=== PATIENT | female | born 1940 | race Caucasian/White ===

== ENCOUNTER → 2016-08-18 | Outpatient (CLI) | payer MEDICARE, BC ==
[2016-08-18 08:41] LABS: ALT 34 U/L (9-52); AST 26 U/L (14-36); Cholesterol 211 mg/dL (<200); Creatine Kinase 709 U/L (30-135); HDL Cholesterol 52 mg/dL (40-60); Triglycerides 152 mg/dL (<150)
== END ==
LOC: LABWHC1 06:52
PROVIDERS: ATTEND Internal Medicine Interventional Cardiology
DX: E78.2 Mixed hyperlipidemia (principal)
CPT/HCPCS: 36415; 80061; 82550; 84450; 84460

== ENCOUNTER → 2016-09-21 | Outpatient (CLI) | payer MEDICARE, BC | END | disposition home or self-care (01) | LOC: LABWHC1 06:37 | PROVIDERS: ATTEND Internal Medicine Interventional Cardiology | DX: E78.2 Mixed hyperlipidemia (principal) | CPT/HCPCS: 36415; 82550 ==

== ENCOUNTER → 2016-09-28 | Outpatient (CLI) | payer MEDICARE, BC | END | disposition home or self-care (01) | LOC: LABWHC1 06:43 | PROVIDERS: ATTEND Family Medicine | DX: E03.9 Hypothyroidism, unspecified (principal); E78.2 Mixed hyperlipidemia | CPT/HCPCS: 36415; 80061; 82550; 84439; 84443; 84450; 84460 ==

== ENCOUNTER → 2017-01-10 | Outpatient (CLI) | payer MEDICARE, BC ==
[2017-01-10 08:06] LABS: ALT 38 U/L (9-52); AST 17 U/L (14-36); Cholesterol 209 mg/dL (<200); Creatine Kinase 60 U/L (30-135); HDL Cholesterol 56 mg/dL (40-60)
== END | disposition home or self-care (01) ==
LOC: LABWHC1 07:03
PROVIDERS: ATTEND Internal Medicine Interventional Cardiology
DX: E78.2 Mixed hyperlipidemia (principal)
CPT/HCPCS: 36415; 80061; 82550; 84450; 84460

== ENCOUNTER → 2017-07-25 | Outpatient (CLI) | payer MEDICARE, BC ==
[2017-07-25 08:33] LABS: Albumin 3.9 g/dL (3.5-5.0); Calcium 9.6 mg/dL (8.4-10.2); Potassium 4.2 mmol/L (3.5-5.1); Total Bilirubin 0.3 mg/dL (0.2-1.3); Total Protein 6.3 g/dL (6.3-8.2)
== END | disposition home or self-care (01) ==
LOC: LABWHC1 06:49
PROVIDERS: ATTEND Internal Medicine Interventional Cardiology
DX: E78.2 Mixed hyperlipidemia (principal)
CPT/HCPCS: 36415; 80053; 80061

== ENCOUNTER → 2017-09-16 | Outpatient (CLI) | payer MEDICARE, BC ==
--- NOTE | 2017-09-17 13:22 | CT ---
EXAMINATION TYPE: CT abdomen pelvis wo con DATE OF EXAM: 09/16/2017 COMPARISON: NONE HISTORY: Patient complains of right shoulder blade pain, RLQ pain, nausea, and vomiting. CT DLP: 826 mGycm Automated exposure control for dose reduction was used. TECHNIQUE: Helical acquisition of images was performed from the lung bases through the pelvis. FINDINGS: Given intravenous and oral contrast limits evaluation of both the hollow and solid viscera. LUNG BASES: Multifocal pleural parenchymal scarring are noted. Partial intrathoracic stomach is seen. LIVER/GB: Solitary hypoattenuated 4 mm hepatic lesion is present on series 3 image 53, too small to a ccurately characterize. There is cholelithiasis. No right upper quadrant fat stranding changes are se en. PANCREAS: No significant abnormality is seen. No ductal dilatation. SPLEEN: No significant abnormality is seen. ADRENALS: Adrenal glands are slightly nodular and thickened without focal measurable nodule. Findings suggest adrenal gland hyperplasia as the adrenal glands maintain their normal adreniform shape. KIDNEYS: Unenhanced kidneys are unremarkable in morphology without hydronephrosis or nephrolithiasis. FREE AIR: No free air is visualized ADENOPATHY: No greater than 1 cm short axis lymph nodes are seen within the abdomen or pelvis. REPRODUCTIVE ORGANS: No significant abnormality is seen URINARY BLADDER: No significant abnormality is seen. OSSEOUS STRUCTURES: Mild multilevel degenerative changes of the spine. BOWEL: Large descending duodenal diverticulum is incidentally seen. Numerous colonic diverticula are seen without pericolonic fat stranding. OTHER: Severe calcific atheromatous changes are seen of the abdominal aorta and its branches. IMPRESSION: 1. CHOLELITHIASIS WITHOUT CT EVIDENCE OF ACUTE CHOLECYSTITIS. GIVEN THE PATIENT'S RIGHT UPPER QUADRAN T PAIN AND VOMITING HIDA SCAN COULD BE PERFORMED TO EVALUATE FOR BILIARY DYSKINESIA OR CHRONIC CHOLEC YSTITIS. 2. LARGE DESCENDING DUODENAL DIVERTICULUM AND PARTIAL INTRATHORACIC STOMACH. 3. COLONIC DIVERTICULOSIS WITHOUT EVIDENCE OF ACUTE DIVERTICULITIS. 4. SUBCENTIMETER NONSPECIFIC HEPATIC LESION THAT IS TOO SMALL TO ACCURATELY CHARACTERIZE.
== END | disposition home or self-care (01) ==
LOC: RADCTMAIN 15:50
PROVIDERS: ATTEND Family Medicine
DX: K80.20 Calculus of gallbladder without cholecystitis without obstruction (principal); K57.50 Diverticulosis of both small and large intestine without perforation or abscess without bleeding; K76.89 Other specified diseases of liver
CPT/HCPCS: 74176

== ENCOUNTER 2017-10-18 10:57 | Day surgery (SDC) | payer MEDICARE, BC ==
[2017-10-14 09:19] VITALS: BMI 32.9
[~2017-10-18 10:57] MED LIST: DEXAMETHASONE SOD PHOSPHATE 10 MG/ML 1 ML VIAL IV ONE; LACTATED RINGERS 1,000 ML IV SCH; MIDAZOLAM 2 MG/2 ML VIAL IV PRN; ONDANSETRON 4 MG/2 ML VIAL IVP ONE; Pre Op ABX Message 1 EACH MISC MISCELLANE ONE; fentaNYL (PF) 50 MCG/ML 2 ML AMP IV PRN
[2017-10-18 11:31] VITALS: TEMP 97
[2017-10-18] MEDS ORDERED: LIDOCAINE 1% 20 ML VIAL (10MG/ML) FOR IV START INTRADERMA ONE (11:52)
[2017-10-18] MEDS ORDERED: HEPARIN SODIUM,PORCINE 5,000 UNIT/ML 1 ML VIAL SQ ONE (12:08)
[2017-10-18] MEDS ORDERED: NEOSTIGMINE 1 MG/ML 10 ML VIAL ONE (12:30)
[2017-10-18] MEDS ORDERED: PROPOFOL 10 MG/ML 20 ML VIAL IV ONE (12:30)
[2017-10-18] MEDS ORDERED: GLYCOPYRROLATE 0.2 MG/ML 2 ML VIAL ONE (12:30)
[2017-10-18] MEDS ORDERED: LIDOCAINE 1% INJ 10MG/ML (20 ML MDV) ONE (12:30)
[2017-10-18] MEDS ORDERED: SUCCINYLCHOLINE CHLORIDE 100 MG/5 ML SYR IV ONE (12:30)
[2017-10-18] MEDS ORDERED: fentaNYL (PF) 50 MCG/ML 2 ML AMP ONE (12:30)
[2017-10-18] MEDS ORDERED: ROCURONIUM BROMIDE 10 MG/ML 10 ML VIAL IV ONE (12:30)
[2017-10-18] MEDS ORDERED: MIDAZOLAM 2 MG/2 ML VIAL ONE (12:30)
[2017-10-18] MEDS ORDERED: SODIUM CHLORIDE 0.9% 50 ML with ceFAZolin 1,000 MG IV ONE ×2 (12:35)
[2017-10-18] MEDS ORDERED: LIDOCAINE 1% INJ 10MG/ML (20 ML MDV) SQ ONE ×2 (12:50)
--- NOTE | 2017-10-18 13:40 | P.OP ---
Date of Procedure: 10/18/17 Preoperative Diagnosis: Cholelithiasis chronic cholecystitis Postoperative Diagnosis: Cholelithiasis chronic cholecystitis Procedure(s) Performed: Laparoscopic cholecystectomy Anesthesia: DONAVON Surgeon: Mauro Rojas Estimated Blood Loss (ml): 20 Pathology: other (Gallbladder with stones) Condition: stable Disposition: same day Indications for Procedure: Symptomatic gallstones Operative Findings: Cholelithiasis chronic cholecystitis Description of Procedure: After induction of general endotracheal anesthesia the abdominal wall was prepped prepped and draped in the usual fashion. Local anesthetic Xylocaine 1% was infiltrated into the skin and subcutaneous tissue just below the umbilicus was small transverse incision was made and deepened through the subcutaneous tissue. The fascia was exposed was infiltrated with the Marcaine and a Veress needle then inserted under direct vision with a satisfactory saline drop test. The peritoneal cavity was then inflated with carbon dioxide to pressure approximately 15 mmHg. The needle was replaced with a 10 mm trocar and the laparoscope inserted. 25 mm trochars were placed in the right upper quadrant and another 5 mm trocar in the epigastrium under direct vision under local anesthesia. Visual exploration revealed no other abnormalities other than some moderate omental adhesions to the gallbladder. No liver masses were noted or cysts of significant. The gallbladder was retracted omental adhesions lysed away gently. The neck of the gallbladder were then carefully dissected and the cystic duct identified school he denies any junction with the gallbladder and common duct was well visualized. The cystic duct was then triply clipped and divided as was the cystic artery. The gallbladder then dissected from its bed and removed through the umbilical port site. Supernatant infrahepatic spaces were thoroughly irrigated. Hemostasis was good and the field was dry. All trochars were then removed under direct vision. CO2 was evacuated. Fascial incision at the umbilicus closed with interrupted 0 Vicryl sutures and the skin with 4-0 Monocryl subcuticular sutures and Steri-Strips dressings were applied. All counts were correct. After an adequate period of observation the patient was discharged home. Low- fat diet. May resume her home meds. Encouraged to ambulate 3-4 times a day starting today. No heavy lifting or straining for a week. Return appointment to the office in about 10-12 days. Tramadol 50 mg 1 every 6 hours when necessary for pain. Removed the dressings and 24 hours. Plan - Discharge Summary New Discharge Prescriptions: No Action amLODIPine [Norvasc] 5 mg PO BID Levothyroxine Sodium [Synthroid] 137 mcg PO DAILY Hydrochlorothiazide [Hydrodiuril] 25 mg PO DAILY Atenolol 25 mg PO HS Ezetimibe [Zetia] 10 mg PO HS Cholecalciferol [Vitamin D3] 1,000 unit PO HS Aspirin 162 mg PO DAILY [place]-3 Fatty Acids/Fish Oil [Fish Oil 1,000 mg Softgel] 1 each PO DAILY hydrALAZINE HCL [Apresoline] 75 mg PO TID cloNIDine HCL [Clonidine HCl] 0.1 mg PO DAILY [place]-3 Fatty Acids/Fish Oil [Fish Oil 1,000 mg Softgel] 1 cap PO DAILY Discharge Medication List Atenolol 25 mg PO HS 08/08/15 [History] Hydrochlorothiazide [Hydrodiuril] 25 mg PO DAILY 08/08/15 [History] Levothyroxine Sodium [Synthroid] 137 mcg PO DAILY 08/08/15 [History] amLODIPine [Norvasc] 5 mg PO BID 08/08/15 [History] Aspirin 162 mg PO DAILY 10/21/15 [History] Cholecalciferol [Vitamin D3] 1,000 unit PO HS 10/21/15 [History] Ezetimibe [Zetia] 10 mg PO HS 10/21/15 [History] [place]-3 Fatty Acids/Fish Oil [Fish Oil 1,000 mg Softgel] 1 each PO DAILY [History] cloNIDine HCL [Clonidine HCl] 0.1 mg PO DAILY 01/20/16 [History] hydrALAZINE HCL [Apresoline] 75 mg PO TID 01/20/16 [History] [place]-3 Fatty Acids/Fish Oil [Fish Oil 1,000 mg Softgel] 1 cap PO DAILY [History]
[2017-10-18 13:49] VITALS: RESP 16
[2017-10-18] MEDS ORDERED: LACTATED RINGERS 1,000 ML IV ONE (14:15)
[2017-10-18 16:19] VITALS: BP 117/69; PULSE 60
== END 2017-10-18 16:30 | disposition home or self-care (01) ==
LOC: OR 10:57
PROVIDERS: ATTEND Surgery
DX: K80.10 Calculus of gallbladder with chronic cholecystitis without obstruction (principal); K66.0 Peritoneal adhesions (postprocedural) (postinfection); I10 Essential (primary) hypertension; E78.00 Pure hypercholesterolemia, unspecified; E03.9 Hypothyroidism, unspecified; G47.33 Obstructive sleep apnea (adult) (pediatric); R01.1 Cardiac murmur, unspecified; Z85.828 Personal history of other malignant neoplasm of skin; Z86.73 Personal history of transient ischemic attack (TIA), and cerebral infarction without residual deficits; Z87.891 Personal history of nicotine dependence; K21.9 Gastro-esophageal reflux disease without esophagitis; Z79.82 Long term (current) use of aspirin; Z79.890 Hormone replacement therapy; Z79.899 Other long term (current) drug therapy; Z88.5 Allergy status to narcotic agent; Z88.8 Allergy status to other drugs, medicaments and biological substances
CPT/HCPCS: 88304; 47562; J2250; J1644; J1100; J2710; J2405; J2001; J3010; J0690; J0330; J2704

== ENCOUNTER → 2018-02-13 | Outpatient (CLI) | payer MEDICARE, BC ==
[2018-02-13 11:41] LABS: Cholesterol 179 mg/dL (<200); HDL Cholesterol 54 mg/dL (40-60); LDL Cholesterol,Calculated 105 mg/dL (0-99); Triglycerides 101 mg/dL (<150)
== END | disposition home or self-care (01) ==
LOC: LABWHC1 06:51
PROVIDERS: ATTEND Internal Medicine Interventional Cardiology
DX: E78.2 Mixed hyperlipidemia (principal)
CPT/HCPCS: 36415; 80061

== ENCOUNTER → 2018-02-13 | Outpatient (CLI) | payer MEDICARE, BC ==
[2018-02-13 08:55] LABS: HGB 12.9 gm/dL (11.4-16.0); MCHC 32.2 g/dL (31.0-37.0); MCV 93.2 fL (80.0-100.0); Mean Platelet Volume 6.9; Platelet Count 328 k/uL (150-450); RBC 4.29 m/uL (3.80-5.40); RDW 12.9 % (11.5-15.5); WBC 6.7 k/uL (3.8-10.6)
[2018-02-13 08:57] LABS: Appearance,Urine Clear (Clear); Bilirubin,Urine Negative (Negative); Blood,Urine Negative (Negative); Color,Urine Yellow; Glucose,Urine (UA) Negative (Negative); Ketones,Urine Negative (Negative); Leukocyte Esterase,Urine Negative (Negative); Nitrite,Urine Negative (Negative); PH, Urine 6.5 (5.0-8.0); Protein,Urine Trace (Negative); Specific Gravity,Urine 1.013 (1.001-1.035); Urobilinogen,Urine <2.0 mg/dL (<2.0)
[2018-02-13 09:01] LABS: Partial Thromboplastin Time 24.3 sec (22.0-30.0); Prothrombin Time 9.5 sec (9.0-12.0)
[2018-02-13 09:28] LABS: Albumin 3.8 g/dL (3.5-5.0); Calcium 9.6 mg/dL (8.4-10.2); Total Bilirubin 0.4 mg/dL (0.2-1.3); Total Protein 6.3 g/dL (6.3-8.2)
== END | disposition home or self-care (01) ==
LOC: LABPAT 06:49
PROVIDERS: ATTEND Orthopaedic Surgery
DX: Z01.818 Encounter for other preprocedural examination (principal); Z01.812 Encounter for preprocedural laboratory examination; Z79.01 Long term (current) use of anticoagulants
CPT/HCPCS: 36415; 80053; 81003; 85027; 85610; 85730; 87070; 93005

== ENCOUNTER 2018-03-13 07:06 | Inpatient (IN) | payer MEDICARE, BC ==
[2018-03-03 08:47] VITALS: BMI 32.9
[~2018-03-13 07:06] MED LIST changes: +ACETAMINOPHEN TAB 500 MG TAB PO ONE; +HYDROmorphone 0.5 MG/0.5 ML SYRINGE IVP PRN; -LACTATED RINGERS 1,000 ML IV SCH; +MELOXICAM 7.5 MG TAB PO ONE; -Pre Op ABX Message 1 EACH MISC MISCELLANE ONE; +ROPIVACAINE 246.25 MG, EPINEPHrine 0.5 MG, KETOROLAC 30 MG, cloNIDine HCL/PF 80 MCG, WA... MISCELLANE ONE; +TRANEXAMIC ACID 1,000 MG in SODIUM CHLORIDE 0.9% 50 ML IVPB ONE; +ceFAZolin IN SWFI 2 GM/20 ML SYRINGE IVP ONE; -fentaNYL (PF) 50 MCG/ML 2 ML AMP IV PRN
[2018-03-13] MEDS: LACTATED RINGERS 1,000 ML IV SCH (07:36)
[2018-03-13] MEDS ORDERED: fentaNYL (PF) 50 MCG/ML 2 ML AMP IVP ONE (07:44)
[2018-03-13] MEDS ORDERED: ROPIVACAINE 1,100 MG, SODIUM CHLORIDE 0.9% 500 ML 330 ML MISCELLANE PRN ×2 (08:21)
--- NOTE | 2018-03-13 08:24 | P.ONQ ---
Anesthesiology Proc Note - PNB - Peripheral Nerve Block Performed Left Adductor Canal Infusion Time Out Performed: Yes Indication: Acute Post-Operative Pain, Analgesia Sedation Type: Sedate with meaningful contact maintained Preparation: Sterile Prep Position: Supine Catheter Depth at Skin (cm): 6 Catheter: Indwelling Needle Types: Other (see comment) (raissa) Needle Size: 100mm (4") Needle Gauge: 18 Technique: Ultrasound Injectate: 0.5% Ropivacaine (see comment for volume) (20cc) Blood Aspirated: No Pain Paresthesia on Injection Noted: No Resistance on Injection: Normal Events: Uneventful and Well Tolerated
[2018-03-13] MEDS ORDERED: BISACODYL 10 MG SUPP RECTAL PRN (09:27)
[2018-03-13] MEDS ORDERED: HYDROmorphone 1 MG/ML 1 ML SYRINGE IVP PRN ×3 (09:27)
[2018-03-13] MEDS ORDERED: HYDROcodone/APAP 5-325MG 1 EACH TAB PO PRN ×2 (09:27)
[2018-03-13] MEDS ORDERED: DIAZEPAM 5 MG TAB PO PRN (09:27)
[2018-03-13] MEDS ORDERED: hydrOXYzine PAMOATE 25 MG CAP PO PRN (09:27)
[2018-03-13] MEDS ORDERED: MAGNESIUM HYDROXIDE 2,400 MG/10 ML CUP PO PRN (09:27)
[2018-03-13] MEDS ORDERED: NALOXONE 0.4 MG/ML 1 ML VIAL IV PRN (09:27)
[2018-03-13] MEDS ORDERED: ONDANSETRON 4 MG/2 ML VIAL IVP PRN (09:27)
[2018-03-13] MEDS ORDERED: NA PHOS,M-B/NA PHOS,DI-BA 133 ML ENEMA RECTAL PRN (09:27)
[2018-03-13] MEDS ORDERED: MIDAZOLAM 2 MG/2 ML VIAL ONE (09:31)
[2018-03-13] MEDS ORDERED: PROPOFOL 10 MG/ML 20 ML VIAL IV ONE (09:31)
[2018-03-13] MEDS ORDERED: ceFAZolin 3,000 MG in SODIUM CHLORIDE 0.9% IRRIGATIO 3,000 ML IRRIGATION ONE (09:31)
[2018-03-13] MEDS ORDERED: SODIUM CHLORIDE 0.9% 100 ML BAG ONE (09:31)
[2018-03-13] MEDS ORDERED: TRANEXAMIC ACID 1,000 MG/10 ML VIAL ONE (09:31)
--- NOTE | 2018-03-13 10:57 | P.OP ---
Date of Procedure: 03/13/18 Preoperative Diagnosis: Severe osteoarthritis left knee Postoperative Diagnosis: Severe osteoarthritis left knee Procedure(s) Performed: Left total knee arthroplasty Implants: [place] [employer] II CR Oxinium cruciate retaining femoral component size 4, left [place] left nonporous tibial baseplate size 4 [place] [employer] II, XLPE Deep Dished articular insert, size11 mm, Size 3- 4 left [place] [employer] BCS resurfacing oval patellar component, 29 mm All components were cemented using [place] R bone cement.. The articulation is Oxinium on polyethylene. Anesthesia: spinal Surgeon: Tony Canela Reserve Officer #1: Aziza Tate Estimated Blood Loss (ml): 50 Pathology: other (Bone and cartilage) Condition: stable Disposition: PACU Indications for Procedure: After failure of conservative treatment we discussed the surgical and nonsurgical treatment options at length. Patient wishes to proceed with a total knee arthroplasty. Complications specific to this procedure were discussed at length, including but not limited to infection, bleeding, stiffness , and nerve injury. Patient is aware of all these complications and informed consent was obtained Operative Findings: The operative findings are consistent with severe osteoarthritis of the left knee Description of Procedure: Patient was seen in the preoperative area consent was reviewed and operative site was marked with a skin marker. An adductor canal pain catheter was placed by anesthesia in the preoperative area. Patient was then brought to the operating room and given preoperative antibiotics intravenously. A spinal anesthetic was administered by the anesthesia department. A tourniquet was placed on the upper thigh and the lower extremity was prepped and draped in usual sterile fashion. A gram of transexamic acid was given. A universal timeout was then performed which confirmed the patient's name, surgical site, ALLERGIES, and consent. The lower extremity was then exsanguinated and tourniquet was inflated to 250 mmHg. A standard and anterior midline approach to the knee was performed. The skin and subcutaneous tissue was dissected down to the patellar tendon. A medial parapatellar arthrotomy was then performed. The knee was then extended, the patellar was everted, and the knee was again flexed. Anterior horns of both menisci were excised, and a release was performed to the posterior medial aspect of the knee. On gross visual inspection, there was complete loss of articular cartilage in the medial and patellofemoral joint spaces. There was also significant cartilage damage in the lateral compartment. There were multiple periarticular osteophytes which were then removed with a Ronguer. The femoral canal was then opened with the appropriate drill, and the intramedullary femoral cutting guide was then placed and set for 5 of valgus. The distal femoral cutting block was then pinned in place, and the distal femur was then cut. The cutting block was then removed and the cut was checked for flatness. Next, the sizing guide was then placed and set for 3 external rotation based off of the epicondylar axis and Whitesides line. After the femur was sized, the appropriate 4-in-1 cutting block was then pinned in place. The anterior condyles were cut without notching. The posterior and chamfer cuts were performed while protecting the collateral ligaments. The cutting block was then removed, and the femoral canal was plugged with autologous bone. Attention was then directed to the tibia. The remaining ACL was removed with a Ronguer, and the tibia was then gently subluxed forward with a large bent knee retractor. Any remaining menisci was excised. The posterior lateral corner was cauterized in order to cauterize the lateral geniculate artery. The extra medullary tibial cutting guide was then placed, set for the appropriate rotation , slope, and depth of resection. The proximal tibia cutting guide was then pinned in place. Proximal tibia was then cut and sized. Next trials were then placed with the appropriate-sized insert. The knee was able to fully extend and flex to 130 and was stable throughout all range of motion. The knee was then extended, patella everted. Patella was then measured, and then using an osteotomy guide, the patella was cut at the appropriate level. The patella was then measured and drilled and the patella trial was then placed. The knee was then taken through range of motion with the patella trial and the patella tracked normally. The knee was then extended patella trial was then removed and the patella was everted. Knee was then flexed and lug holes were drilled through the femoral trial and the femoral trial was then removed. The tibial was then exposed, and the tibial broach guide was then pinned in place after it was set for the appropriate rotation to allow for the most coverage without overhang. The tibia was then reamed and broached. The cut surfaces of bone were then irrigated with pulsatile lavage. The posterior structures were injected with the ropivacaine solution. The knee was also irrigated with Irrisept solution. The components were then opened, the cement was mixed, and the components were then cemented in place. The cement was allowed to harden with the knee in full extension. While the cement was hardening, the remaining soft tissues were then injected with a ropivacaine solution, which consisted of 246.25 mg of ropivacaine, 0.5 mg of epinephrine, 30 mg of Toradol, 80 g of clonidine, and 48.45 mL of sterile water, for a total of 100 mL of fluid injected. After the cemented hardened. The tourniquet was released, and hemostasis was obtained. A second gram of transexamic acid was given. The knee was again irrigated. The knee was again taken through range of motion and found to be stable throughout all range of motion of 0-130 , and the patella tracked normally. The fascia was then closed with #2 strata fix suture. The subcutaneous tissue was closed with 3-0 Vicryl and 3-0 strata fix. Dermabond glue was used for the skin and placed with the knee in flexion. The patient was placed in a sterile silver dressing. Patient was then transferred to recovery room in stable condition. The assistant professor of spanish SHIRLEY Wesley was required due the complexity surgery and the need for a skilled zoning assistant. She assisted in positioning, draping, retraction, and closure of the wound.
[2018-03-13] MEDS ORDERED: LACTATED RINGERS 1,000 ML IV ONE (11:09)
--- NOTE | 2018-03-13 12:21 | XR ---
EXAMINATION TYPE: XR knee limited LT DATE OF EXAM: 03/13/2018 COMPARISON: NONE HISTORY: 77-year-old female evaluation for postoperative abnormality and alignment TECHNIQUE: 2 views FINDINGS: Images show placement of left total knee arthroplasty. Both distal femoral and proximal tibial compon ents of the prosthesis appear well seated without periprosthetic fracture. Alignment grossly anatomic . Anterior soft tissue irregularity with soft tissue air as well as intra-articular air related to re cent operation. IMPRESSION: Uncomplicated postoperative appearance left total knee arthroplasty.
[2018-03-13] MEDS: SODIUM CHLORIDE 0.9% 1,000 ML IV SCH (15:13)
[2018-03-13] MEDS: hydrALAZINE HCL 25 MG TAB PO SCH ×2 (18:02→23:09)
[2018-03-13] MEDS: ceFAZolin IN SWFI 2 GM/20 ML SYRINGE IVP SCH ×2 (18:02→23:09)
[2018-03-13] MEDS ORDERED: traMADol 50 MG TAB PO PRN ×2 (18:22)
[2018-03-13] MEDS: ASPIRIN 325 MG TAB PO SCH (20:25)
[2018-03-13] MEDS: amLODIPine 5 MG TAB PO SCH (20:25)
[2018-03-13] MEDS ORDERED: SENNOSIDES-DOCUSATE SODIUM 1 EACH TAB PO SCH (21:00)
[2018-03-13] MEDS ORDERED: CHOLECALCIFEROL 1,000 UNIT TAB PO SCH (21:00)
[2018-03-13] MEDS ORDERED: ATENOLOL 25 MG TAB PO SCH (21:00)
[2018-03-13] MEDS ORDERED: EZETIMIBE 10 MG TAB PO SCH (21:00)
[2018-03-14] MEDS: SODIUM CHLORIDE 0.9% 1,000 ML IV SCH (06:10)
[2018-03-14] MEDS: LACTATED RINGERS 1,000 ML IV SCH (06:10)
[2018-03-14] MEDS ORDERED: LEVOTHYROXINE 137 MCG TAB PO SCH (06:30)
[2018-03-14 07:43] LABS: Basophils % (A) 0 %; Eosinophils % (A) 0 %; HCT 33.4 % (34.0-46.0); HGB 10.6 gm/dL (11.4-16.0); Lymphocytes # (A) 1.9 k/uL (1.0-4.8); Lymphocytes % (A) 16 %; MCHC 31.7 g/dL (31.0-37.0); MCV 91.5 fL (80.0-100.0); Mean Platelet Volume 6.6; Monocytes % (A) 8 %; Neutrophils % (A) 75 %; Platelet Count 295 k/uL (150-450); RBC 3.65 m/uL (3.80-5.40); RDW 13.1 % (11.5-15.5)
[2018-03-14 08:18] VITALS: BP 119/62; PULSE 58; RESP 18; TEMP 98.7
--- NOTE | 2018-03-14 08:54 | P.PN ---
Progress Note - Text Progress Note Date: 03/14/18 Vital Signs 03/14/18 07:30 Temperature 98.7 F Pulse Rate [ 58 L Pulse Oximetery ] Respiratory 18 Rate Blood Pressure 119/62 [Right Arm] O2 Sat by Pulse 95 Oximetry Date of service March 14 2018 Anesthesia pain rounds Patient evaluated at the bedside at 7:15 AM The patient is status post[ 1] adductor canal catheter placement. The catheter was placed for postoperative pain control, status post total left knee arthroplasty. Ropivacaine 0.2% is infusing at 8 mLs per hour. The patient has no complaints of left lower extremity numbness or weakness. Patient's VAS score is 3 -10. Assessment: Patient's adductor canal catheter is in place and working appropriately. Plan: continue infusion and adjust it as needed.
[2018-03-14] MEDS ORDERED: MELOXICAM 7.5 MG TAB PO SCH (09:00)
[2018-03-14] MEDS ORDERED: cloNIDine HCL 0.1 MG TAB PO SCH (09:00)
[2018-03-14] MEDS ORDERED: HYDROCHLOROTHIAZIDE 25 MG TAB PO SCH (09:00)
[2018-03-14] MEDS: hydrALAZINE HCL 25 MG TAB PO SCH (09:11)
[2018-03-14] MEDS: amLODIPine 5 MG TAB PO SCH (09:12)
[2018-03-14] MEDS: ASPIRIN 325 MG TAB PO SCH (09:21)
--- NOTE | 2018-03-14 10:24 | P.CONS ---
History of Present Illness - Reason for Consult Consult date: 03/14/18 Medical management Requesting physician: Tony Canela - Chief Complaint s/p left TKA - History of Present Illness 77-year-old female who underwent elective left total knee arthroplasty. Dr. Ba was consulted for medical management. The patient has a history of CVA in 2007, GERD, hyperlipidemia, hypertension, osteoarthritis. She is a former cigarette smoker. The patient was examined at the bedside with Dr. Ba. The patient is sitting up in the chair. Denies nausea or vomiting. Denies shortness of breath , cough, or congestion. Reports pain is tolerable at this time. Patient is anticipating working with physical therapy today. Vital signs have been stable. REVIEW OF SYSTEMS: GENERAL: Patient denies fever. Denies chills. EYES: Denies blurred vision. Denies vision changes. Denies eye pain. EARS, NOSE, MOUTH, & THROAT: Denies headache. Denies sore throat. Denies ear pain. RESPIRATORY: Denies cough. Denies shortness of breath. Denies sputum production. Denies hemoptysis. CARDIOVASCULAR: Denies chest pain or pressure. Denies palpitations. Denies arrhythmias. GASTROINTESTINAL: Denies abdominal pain. Denies diarrhea. Denies constipation. Denies nausea. Denies vomiting. Denies heartburn. Denies blood in the stool. GENITOURINARY: Denies urinary frequency. Denies burning. Denies dysuria. Denies cloudy urine. Denies blood in the urine. MUSCULOSKELETAL: Denies myalgias. Denies joint swelling. INTEGUMENTARY: Denies pruitis. Denies rash. PSYCHIATRIC: Denies suicidal or homicial ideations. ENDOCRINE: Denies weight change. Denies polydipsia. Denies polyuria. HEMATOLOGIC: Denies bleeding disorders. PHYSICAL EXAM: GENERAL: This is a 77-year-old female in no apparent distress at the time of examination. Pleasant and cooperative. HEENT: Head is atraumatic, normocephalic. Pupils are equal, round, and reactive to light. Sclerae anicteric. Conjunctivae are clear. Mucus membranes of the mouth are moist. Neck is supple. RESPIRATORY: Clear to auscultation. No wheezes, rales, or rhonchi. No use of accessory muscles. Patient maintaining oxygen saturation greater than 92%. No chest wall tenderness is noted on palpation or with deep breathing. CARDIOVASCULAR: Regular rate and rhythm. S1 and S2 noted. Systolic murmur auscultated. No JVD noted. No S3 or S4 noted. GASTROINTESTINAL: No distention noted. Abdomen soft and round. Normal active bowel sounds auscultated x 4 quadrants. No pain or tenderness noted upon palpation. INTEGUMENTARY: Dressing to left knee clean dry and intact. No cyanosis. No jaundice. No rashes noted. No cellulitis noted. EXTREMITIES: 2+ peripheral pulses. No evidence of peripheral edema. No calf tenderness noted. NEUROLOGIC: Cranial nerves II-XII intact. PSYCHIATRIC: Awake, alert, and oriented X 3. Appropriate affect. Intact judgement and insight. ASSESSMENT: Osteoarthritis, status post left total knee arthroplasty Hyperlipidemia Hypertension History of CVA in 2007 Remote history of nicotine dependence Obesity: BMI 32.9 PLAN: Continue postoperative care per orthopedics. Activity as tolerated. PT/OT. Pain control. Resume home medications as appropriate. Monitor vital signs and address as appropriate. Incentive spirometer 10 times hour while awake. DVT prophylaxis: Aspirin 325 mg twice a day. GI prophylaxis: Pepcid 20 mg daily. Thank you for this consultation. We will continue to follow with the patient during their hospitalization. The patient is stable for discharge from a medical standpoint when cleared for discharge by attending/admitting physician Nurse practitioner note has been reviewed by physician. Signing provider agrees with the documented findings, assessment, and plan of care. Past Medical History Past Medical History: Cancer, CVA/TIA, GERD/Reflux, Hyperlipidemia, Hypertension , Osteoarthritis (OA), Sleep Apnea/CPAP/BIPAP Additional Past Medical History / Comment(s): hx heart murmur, stroke 2007-no residual effects, hx. basal cell skin cancer, hx shingles History of Any Multi-Drug Resistant Organisms: None Reported Past Surgical History: Appendectomy, Cholecystectomy, Heart Catheterization, Joint Replacement, Tubal Ligation Additional Past Surgical History / Comment(s): right knee replaced, Mohs procedure-skin cancer, COLONOSCOPY Past Anesthesia/Blood Transfusion Reactions: No Reported Reaction Past Psychological History: No Psychological Hx Reported Smoking Status: Former smoker Past Alcohol Use History: Rare Additional Past Alcohol Use History / Comment(s): quit smoking 33 yrs. ago, smoked 20 years <1ppd Past Drug Use History: None Reported - Past Family History Mother Family Medical History: Hypertension Father Family Medical History: COPD, Coronary Artery Disease (CAD) Medications and Allergies Home Medications Medication Instructions Recorded Confirmed Type Atenolol 25 mg PO HS 08/08/15 03/13/18 History Hydrochlorothiazide [Hydrodiuril] 25 mg PO DAILY 08/08/15 03/13/18 History Levothyroxine Sodium [Synthroid] 137 mcg PO DAILY 08/08/15 03/13/18 History amLODIPine [Norvasc] 5 mg PO BID 08/08/15 03/13/18 History Cholecalciferol [Vitamin D3] 1,000 unit PO HS 10/21/15 03/13/18 History Ezetimibe [Zetia] 10 mg PO HS 10/21/15 03/13/18 History cloNIDine HCL [Clonidine HCl] 0.1 mg PO DAILY 01/20/16 03/13/18 History hydrALAZINE HCL [Apresoline] 75 mg PO TID 01/20/16 03/13/18 History Aspirin [Adult Low Dose Aspirin EC] 81 mg PO HS 03/03/18 03/13/18 History Lutein 20 mg PO DAILY 03/03/18 03/13/18 History Ranitidine HCl [Zantac] 300 mg PO HS 03/03/18 03/13/18 History Allergies Allergy/AdvReac Type Severity Reaction Status Date / Time codeine Allergy Hallucinati Verified 03/13/18 11:44 ons lisinopril Allergy Swelling Verified 03/13/18 11:44 scopolamine Allergy Hallucinati Verified 03/13/18 11:44 ons nitrofurantoin AdvReac "makes me Verified 03/13/18 11:44 [From Macrobid] antsy" Physical Exam Vitals: Vital Signs Temp Pulse Pulse Resp BP Pulse Ox 03/14/18 07:30 98.7 F 58 L 18 119/62 95 03/14/18 00:00 16 03/13/18 23:00 98.0 F 66 16 132/65 96 03/13/18 20:00 98.7 F 69 16 141/51 96 03/13/18 14:23 59 L 113/64 03/13/18 14:07 77 113/69 03/13/18 13:52 67 111/67 03/13/18 13:37 61 113/68 03/13/18 13:23 58 L 111/52 03/13/18 13:07 56 L 111/69 03/13/18 12:52 59 L 117/67 03/13/18 12:38 59 L 113/52 03/13/18 12:23 97.6 F 60 116/43 94 L 03/13/18 12:15 62 18 124/58 94 L 03/13/18 12:00 63 18 127/58 94 L 03/13/18 11:45 66 18 108/54 93 L 03/13/18 11:30 61 16 95/48 90 L Intake and Output 03/13/18 03/14/18 03/14/18 22:59 06:59 14:59 Intake Total 995 650 Output Total 500 Balance 495 650 Intake: Intake, IV Titration 130 Amount Sodium Chloride 0.9% 1, 130 000 ml @ 65 mls/hr IV . [id number] [facility] Rx#:[id number] Oral 865 650 Output: Urine 500 Other: Voiding Method Bedside Commode # Voids 1 1 Results CBC & Chem 7: 03/14/18 06:37 Labs: Abnormal Lab Results - Last 24 Hours (Table) 03/14/18 Range/Units 06:37 WBC 12.0 H (3.8-10.6) k/uL RBC 3.65 L (3.80-5.40) m/uL Hgb 10.6 L (11.4-16.0) gm/dL Hct 33.4 L (34.0-46.0) % Neutrophils # 9.0 H (1.3-7.7) k/uL
--- NOTE | 2018-03-14 13:05 | P.DS ---
Providers Date of admission: 03/13/18 07:06 Expected date of discharge: 03/14/18 Attending physician: Tony Canela Consults: 03/13/18 09:27 Consult Physician Routine Consulting Provider: Herman Marcus Jr Consult Reason/Comments: medical management Do you want consulting provider notified?: Yes Primary care physician: Herman Marcus - Discharge Diagnosis(es) (1) Primary osteoarthritis of left knee Current Visit: Yes Status: Acute (2) S/P total knee arthroplasty Current Visit: Yes Status: Acute Hospital Course: This is a 77-year-old female with known history of degenerative arthritis of the left knee. The patient presents for evaluation. After discussion and consideration patient elects to proceed with total knee arthroplasty. The patient is seen preoperatively by Dr. Canela and medically cleared for surgery by their primary care physician. Patient is admitted to [facility] on 03/13/2019 for total knee arthroplasty. The procedures performed without complication or sequelae. The patient is doing well postoperatively. Labs and vital signs are stable on day of discharge. On day of discharge patient's knee incision is healing well. There is minimal erythema. There is no drainage noted at this time. There is minimal soft tissue swelling to the knee. Patient has full foot and ankle motion without difficulty or pain. Neurovascular status to the left lower extremity is intact. Patient is discharged home in good condition. Please see med rec for accurate list of home medications. Plan - Discharge Summary Discharge Rx Participant: No New Discharge Prescriptions: New Aspirin 325 mg PO BID #60 tab Sennosides [Senokot] 1 tab PO BID #60 tablet traMADol HCl [Ultram] 1 - 2 tab PO Q6H PRN #56 tab PRN Reason: Pain No Action amLODIPine [Norvasc] 5 mg PO BID Levothyroxine Sodium [Synthroid] 137 mcg PO DAILY Hydrochlorothiazide [Hydrodiuril] 25 mg PO DAILY Atenolol 25 mg PO HS Ezetimibe [Zetia] 10 mg PO HS Cholecalciferol [Vitamin D3] 1,000 unit PO HS hydrALAZINE HCL [Apresoline] 75 mg PO TID cloNIDine HCL [Clonidine HCl] 0.1 mg PO DAILY Aspirin [Adult Low Dose Aspirin EC] 81 mg PO HS Lutein 20 mg PO DAILY Ranitidine HCl [Zantac] 300 mg PO HS Discharge Medication List Atenolol 25 mg PO HS 08/08/15 [History] Hydrochlorothiazide [Hydrodiuril] 25 mg PO DAILY 08/08/15 [History] Levothyroxine Sodium [Synthroid] 137 mcg PO DAILY 08/08/15 [History] amLODIPine [Norvasc] 5 mg PO BID 08/08/15 [History] Cholecalciferol [Vitamin D3] 1,000 unit PO HS 10/21/15 [History] Ezetimibe [Zetia] 10 mg PO HS 10/21/15 [History] cloNIDine HCL [Clonidine HCl] 0.1 mg PO DAILY 01/20/16 [History] hydrALAZINE HCL [Apresoline] 75 mg PO TID 01/20/16 [History] Aspirin [Adult Low Dose Aspirin EC] 81 mg PO HS 03/03/18 [History] Lutein 20 mg PO DAILY 03/03/18 [History] Ranitidine HCl [Zantac] 300 mg PO HS 03/03/18 [History] Aspirin 325 mg PO BID #60 tab 03/14/18 [Rx] Sennosides [Senokot] 1 tab PO BID #60 tablet 03/14/18 [Rx] traMADol HCl [Ultram] 1 - 2 tab PO Q6H PRN #56 tab 03/14/18 [Rx] Follow up Appointment(s)/Referral(s): Herman Marcus Jr, DO [Primary Care Provider] - 1 Week [facility], [NON-STAFF] - As Needed Tony Canela DO [Doctor of Osteopathic Medicine] - 03/29/18 1:30 pm Ambulatory/Diagnostic Orders: Continuous Passive Motion (CPM) Machine [DME.AMB1] Time Frame: 3 Weeks, Location : None Selected Activity/Diet/Wound Care/Special Instructions: Weightbearing as tolerated with a walker. CPM 5-6h daily. Leave dressing intact. May be removed by home care nurse in 10 days. May shower with dressing on. Please call [facility] with any questions or concerns, . Discharge Disposition: HOME WITH HOME HEALTH SERVICES
[2018-03-14] MEDS ORDERED: FAMOTIDINE 20 MG TAB PO SCH ×2 (21:00)
== END 2018-03-14 14:50 | disposition home health service (06) | DRG 470 ==
LOC: 2ORMAIN 07:06 → 4SSUR 11:30
PROVIDERS: ADMIT Orthopaedic Surgery; ATTEND Orthopaedic Surgery
PROC: 0SRD069 Replacement of Left Knee Joint with Oxidized Zirconium on Polyethylene Synthetic Substitute, Cemented, Open Approach (ICD-10-PCS; principal; 2018-03-13 09:15)
DX: M17.12 Unilateral primary osteoarthritis, left knee (principal); I08.1 Rheumatic disorders of both mitral and tricuspid valves; I10 Essential (primary) hypertension; E78.2 Mixed hyperlipidemia; K21.9 Gastro-esophageal reflux disease without esophagitis; G47.30 Sleep apnea, unspecified; E66.9 Obesity, unspecified; Z68.32 Body mass index [BMI] 32.0-32.9, adult; Z79.82 Long term (current) use of aspirin; Z79.890 Hormone replacement therapy; Z79.899 Other long term (current) drug therapy; Z87.891 Personal history of nicotine dependence; Z86.73 Personal history of transient ischemic attack (TIA), and cerebral infarction without residual deficits; Z85.828 Personal history of other malignant neoplasm of skin; Z82.49 Family history of ischemic heart disease and other diseases of the circulatory system; Z82.5 Family history of asthma and other chronic lower respiratory diseases
CPT/HCPCS: 85025; 88300

== ENCOUNTER → 2018-09-15 | Outpatient (CLI) | payer MEDICARE ==
[2018-09-15 11:53] LABS: Albumin 4.2 g/dL (3.80-4.90); Albumin/Globulin Ratio 2.21 (1.60-3.17); Calcium 9.5 mg/dL (8.7-10.3); Globulin 1.9 g/dL (1.6-3.3); LDL Cholesterol,Calculated 104.2 mg/dL (0.0-131.0); Potassium 3.9 mmol/L (3.5-5.5); Total Bilirubin 0.5 mg/dL (0.2-1.2); Total Protein 6.1 g/dL (6.2-8.2); VLDL Calculation 21.8 mg/dL (5.00-40.00)
== END | disposition home or self-care (01) ==
LOC: LABWHC1 06:32
PROVIDERS: ATTEND Internal Medicine Interventional Cardiology
DX: E78.2 Mixed hyperlipidemia (principal)
CPT/HCPCS: 36415; 80053; 80061

== ENCOUNTER → 2018-12-05 | Outpatient (CLI) | payer MEDICARE ==
[2018-12-05 10:33] LABS: T4, Free (Free Thyroxine) 1.3 ng/dL (0.80-1.80)
== END | disposition home or self-care (01) ==
LOC: LABWHC1 06:42
PROVIDERS: ATTEND Family Medicine
DX: E78.5 Hyperlipidemia, unspecified (principal); I10 Essential (primary) hypertension; E03.9 Hypothyroidism, unspecified; R53.83 Other fatigue
CPT/HCPCS: 36415; 84439; 84443; 84481

== ENCOUNTER → 2019-03-01 | Outpatient (CLI) | payer MEDICARE ==
[2019-03-01 15:16] LABS: Chol/HDL Ratio 2.93; LDL Cholesterol,Calculated 93.6 mg/dL (0.0-131.0); VLDL Calculation 20.4 mg/dL (5.00-40.00)
== END | disposition home or self-care (01) ==
LOC: LABWHC1 07:09
PROVIDERS: ATTEND Internal Medicine Interventional Cardiology
DX: E78.2 Mixed hyperlipidemia (principal)
CPT/HCPCS: 36415; 80061; 84450; 84460

== ENCOUNTER → 2019-05-08 | Outpatient (CLI) | payer MEDICARE ==
[2019-05-08 12:22] LABS: Basophils % (A) 0 %; Eosinophils # (A) 0.1 k/uL (0-0.7); Eosinophils % (A) 1 %; HCT 38.8 % (34.0-46.0); HGB 12.7 gm/dL (11.4-16.0); Lymphocytes # (A) 2.1 k/uL (1.0-4.8); Lymphocytes % (A) 24 %; MCH 30.5 pg (25.0-35.0); MCHC 32.8 g/dL (31.0-37.0); MCV 93.1 fL (80.0-100.0); Mean Platelet Volume 7.2; Monocytes # (A) 0.6 k/uL (0-1.0); Monocytes % (A) 6 %; Neutrophils # (A) 5.7 k/uL (1.3-7.7); Neutrophils % (A) 66 %; Platelet Count 304 k/uL (150-450); RBC 4.17 m/uL (3.80-5.40); RDW 12.4 % (11.5-15.5); WBC 8.6 k/uL (3.8-10.6)
[2019-05-08 19:33] LABS: ALT 22 U/L (8-44); AST 19 U/L (13-35); African American GFR (CKD) 82.4 (60.0-200.0); Albumin/Globulin Ratio 2.56 (1.60-3.17); Alkaline Phosphatase 56 U/L (41-126); BUN/Creat Ratio 16.25 Ratio (12.00-20.00); Bilirubin, Conjugated <0.20 mg/dL (0.20-0.40); Calcium 9.1 mg/dL (8.7-10.3); Carbon Dioxide 27.5 mmol/L (21.6-31.8); Chloride 100 mmol/L (96-109); Globulin 1.6 g/dL (1.6-3.3); Glucose 94 mg/dL (70-110); Non-African American GFR(CKD) 71.1 (60.0-200.0); Potassium 3.8 mmol/L (3.5-5.5); Sodium 135 mmol/L (135-145); Total Bilirubin 0.4 mg/dL (0.3-1.2); Total Protein 5.7 g/dL (6.2-8.2)
== END | disposition home or self-care (01) ==
LOC: LABWHC1 11:19
PROVIDERS: ATTEND Family Medicine
DX: R53.83 Other fatigue (principal); E03.9 Hypothyroidism, unspecified; I35.9 Nonrheumatic aortic valve disorder, unspecified; K29.70 Gastritis, unspecified, without bleeding
CPT/HCPCS: 36415; 80053; 82248; 84439; 84443; 85025

== ENCOUNTER → 2020-01-07 | Outpatient (CLI) | payer MEDICARE ==
[2020-01-07 16:46] LABS: African American GFR (CKD) 81.8 (60.0-200.0); Albumin 4.1 g/dL (3.80-4.90); Albumin/Globulin Ratio 2.28 (1.60-3.17); Anion Gap 8.5 mmol/L (4.00-12.00); BUN/Creat Ratio 21.25 Ratio (12.00-20.00); Calcium 9.5 mg/dL (8.7-10.3); Carbon Dioxide 29.5 mmol/L (21.6-31.8); Chol/HDL Ratio 3.5; Globulin 1.8 g/dL (1.6-3.3); LDL Cholesterol,Calculated 96.4 mg/dL (0.0-131.0); Non-African American GFR(CKD) 70.6 (60.0-200.0); Potassium 4.2 mmol/L (3.5-5.5); Total Bilirubin 0.6 mg/dL (0.3-1.2); Total Protein 5.9 g/dL (6.2-8.2); VLDL Calculation 23.6 mg/dL (5.00-40.00)
== END | disposition home or self-care (01) ==
LOC: LABWHC1 07:13
PROVIDERS: ATTEND Nurse Practitioner Adult Health
DX: I10 Essential (primary) hypertension (principal); E78.2 Mixed hyperlipidemia
CPT/HCPCS: 36415; 80053; 80061

== ENCOUNTER → 2020-05-12 | Outpatient (CLI) | payer MEDICARE ==
[2020-05-12 10:56] LABS: African American GFR (CKD) 81.8 (60.0-200.0); Anion Gap 6.8 mmol/L (4.00-12.00); BUN/Creat Ratio 21.25 Ratio (12.00-20.00); Calcium 9.6 mg/dL (8.7-10.3); Carbon Dioxide 32.2 mmol/L (21.6-31.8); Non-African American GFR(CKD) 70.6 (60.0-200.0); Potassium 3.8 mmol/L (3.5-5.5)
== END | disposition home or self-care (01) ==
LOC: LABWHC1 07:05
PROVIDERS: ATTEND Nurse Practitioner Adult Health
DX: I10 Essential (primary) hypertension (principal)
CPT/HCPCS: 36415; 80048

== ENCOUNTER → 2020-08-15 | Outpatient (CLI) | payer MEDICARE ==
--- NOTE | 2020-08-15 13:26 | XR ---
EXAMINATION TYPE: XR KUB DATE OF EXAM: 08/15/2020 Comparison: None Clinical History: 79-year-old female hematuria, R10.9, R31.9 Findings: No evidence for free intraperitoneal air. Cholecystectomy clips. Some calcifications in the left uppe r abdomen could be vascular calcifications or could represent renal calculi measuring up to 5 mm. Rou nded calcifications in the left side of the pelvis likely phleboliths. Scattered moderate stool. No d ilated small bowel or air-fluid levels. Impression: 1. No evidence for free air or bowel obstruction. 2. Nonspecific 5 mm and smaller calcifications in the left upper abdomen could be vascular or could r epresent left renal calculi.
[2020-08-15 15:29] LABS: Basophils # (A) 0.05 X 10*3/uL (0.00-0.10); Basophils % (A) 0.7 %; Eosinophils # (A) 0.12 X 10*3/uL (0.04-0.35); Eosinophils % (A) 1.6 %; HCT 38.7 % (37.2-46.3); HGB 12.6 g/dL (12.0-15.0); Lymphocytes # (A) 2.01 X 10*3/uL (0.90-5.00); Lymphocytes % (A) 27.2 %; MCH 30.2 pg (27.0-32.0); MCHC 32.6 g/dL (32.0-37.0); MCV 92.8 fL (80.0-97.0); Mean Platelet Volume 9.7 fL (9.5-12.2); Monocytes # (A) 0.71 X 10*3/uL (0.20-1.00); Monocytes % (A) 9.6 %; Neutrophils # (A) 4.46 X 10*3/uL (1.80-7.70); Neutrophils % (A) 60.5 %; Platelet Count 286 X 10*3/uL (140-440); RBC 4.17 X 10*6/uL (4.10-5.20); WBC 7.38 X 10*3/uL (4.50-10.00)
[2020-08-16 04:20] LABS: African American GFR (CKD) 81.8 (60.0-200.0); Albumin 4.6 g/dL (3.80-4.90); Albumin/Globulin Ratio 2.71 (1.60-3.17); Anion Gap 16.1 mmol/L (4.00-12.00); BUN/Creat Ratio 21.25 Ratio (12.00-20.00); Calcium 9.8 mg/dL (8.7-10.3); Carbon Dioxide 20.9 mmol/L (21.6-31.8); Globulin 1.7 g/dL (1.6-3.3); Non-African American GFR(CKD) 70.6 (60.0-200.0); Potassium 4.3 mmol/L (3.5-5.5); Total Bilirubin 0.4 mg/dL (0.2-1.2); Total Protein 6.3 g/dL (6.2-8.2)
== END | disposition home or self-care (01) ==
LOC: LABWHC1 09:59
PROVIDERS: ATTEND Family Medicine
DX: N39.0 Urinary tract infection, site not specified (principal); E03.9 Hypothyroidism, unspecified; R19.7 Diarrhea, unspecified; R10.9 Unspecified abdominal pain; R31.9 Hematuria, unspecified; R11.0 Nausea
CPT/HCPCS: 36415; 74018; 80053; 82150; 83690; 85025

== ENCOUNTER → 2020-10-20 | Outpatient (CLI) | payer MEDICARE ==
[2020-10-20 11:15] LABS: Basophils # (A) 0.04 X 10*3/uL (0.00-0.10); Basophils % (A) 0.5 %; Eosinophils # (A) 0.18 X 10*3/uL (0.04-0.35); Eosinophils % (A) 2.5 %; HCT 38.5 % (37.2-46.3); HGB 12.6 g/dL (12.0-15.0); Lymphocytes # (A) 1.71 X 10*3/uL (0.90-5.00); Lymphocytes % (A) 23.4 %; MCH 30.2 pg (27.0-32.0); MCHC 32.7 g/dL (32.0-37.0); MCV 92.3 fL (80.0-97.0); Mean Platelet Volume 9.8 fL (9.5-12.2); Monocytes # (A) 0.72 X 10*3/uL (0.20-1.00); Monocytes % (A) 9.8 %; Neutrophils # (A) 4.63 X 10*3/uL (1.80-7.70); Neutrophils % (A) 63.4 %; Platelet Count 297 X 10*3/uL (140-440); RBC 4.17 X 10*6/uL (4.10-5.20); RDW 12.7 % (11.5-14.5); WBC 7.31 X 10*3/uL (4.50-10.00)
[2020-10-20 11:32] LABS: African American GFR (CKD) 70.5 (60.0-200.0); Albumin 4.2 g/dL (3.80-4.90); Albumin/Globulin Ratio 2.21 (1.60-3.17); Anion Gap 9.3 mmol/L (4.00-12.00); BUN/Creat Ratio 21.11 Ratio (12.00-20.00); Calcium 9.3 mg/dL (8.7-10.3); Carbon Dioxide 29.7 mmol/L (21.6-31.8); Chol/HDL Ratio 3.98; Globulin 1.9 g/dL (1.6-3.3); LDL Cholesterol,Calculated 116.2 mg/dL (0.0-131.0); Non-African American GFR(CKD) 60.8 (60.0-200.0); Potassium 3.6 mmol/L (3.5-5.5); Total Bilirubin 0.6 mg/dL (0.2-1.2); Total Protein 6.1 g/dL (6.2-8.2); VLDL Calculation 20.8 mg/dL (5.00-40.00)
[2020-10-20 11:40] LABS: T4, Free (Free Thyroxine) 1.6 ng/dL (0.80-1.80)
== END | disposition home or self-care (01) ==
LOC: LABWHC1 07:10
PROVIDERS: ATTEND Nurse Practitioner Adult Health
DX: Z00.00 Encounter for general adult medical examination without abnormal findings (principal); E78.2 Mixed hyperlipidemia; I10 Essential (primary) hypertension
CPT/HCPCS: 36415; 80053; 80061; 84439; 84443; 84481; 85025

== ENCOUNTER → 2020-12-31 | Outpatient (CLI) | payer MEDICARE ==
--- NOTE | 2020-12-31 09:22 | BD ---
EXAMINATION TYPE: Axial Bone Density DATE OF EXAM: 12/31/2020 COMPARISON: 12/11/2014 CLINICAL HISTORY: Height: 62 IN Weight: 189 LBS RISK FACTORS HISTORY OF: Active: YES Diet low in dairy products/other sources of calcium: YES Postmenopausal woman: AGE 51 Take estrogen and/or progesterone medications: NOT NOW How lon YEARS MEDICATIONS: Thyroid Medications: YES Which medication: Levothyroxine How Long: SINCE 1985 Additional Medications: VIT D, EMERGEN-C, LEVOTHYROXINE, BLOOD PRESSURE, CHOLESTEROL MEDS, ACID REFLU X MEDS, HCTZ, BABY ASPIRIN EXAM MEASUREMENTS: Bone mineral densitometry was performed using the [employer] System. Bone mineral density as measured about the Lumbar spine is: ----- L1-L4(G/cm2): 1.388 T Score Values are as follows: ----- L2: 1.7 ----- L3: 3.5 ----- L4: 1.6 ----- L1-L4: 1.8 Bone mineral density has: Decreased -3.9% since study of: 12/11/2014 Bone mineral density about the R hip (g/cm2): 0.968 Bone mineral density about the L hip (g/cm2): 0.935 T Score values are as follows: -----R Neck: -0.5 -----L Neck: -0.7 -----R Total: 0.3 -----L Total: 0.0 Bone mineral density has: Decreased -6.2% since study of: 12/11/2014 IMPRESSION: No evidence for osteoporosis or osteopenia. NOTE: T-SCORE=SD OF THE YOUNG ADULT MEAN.
--- NOTE | 2021-01-01 12:35 | MM ---
Reason for exam: screening (asymptomatic). Last mammogram was performed 6 years and 1 month ago. History: Patient is postmenopausal and has history of other cancer at age 67. 3 cyst aspirations of the left breast. Cyst aspiration of the right breast. Took estrogen for 8 years. Took progesterone for 8 years. Physical Findings: A clinical breast exam by your physician is recommended on an annual basis and results should be correlated with mammographic findings. MG 3D Screening Mammo W/Cad Bilateral CC and MLO view(s) were taken. Prior study comparison: November 19, 2014, bilateral MG screening mammo w CAD. The breast tissue is heterogeneously dense. This may lower the sensitivity of mammography. There are benign appearing round, linear, vascular calcifications bilaterally. There is no discrete abnormality. ASSESSMENT: Benign, BI-RAD 2 RECOMMENDATION: Routine screening mammogram of both breasts in 1 year.
== END | disposition home or self-care (01) ==
LOC: RADMAMWWP 07:39
PROVIDERS: ATTEND Family Medicine
DX: Z12.31 Encounter for screening mammogram for malignant neoplasm of breast (principal); Z78.0 Asymptomatic menopausal state; Z85.3 Personal history of malignant neoplasm of breast
CPT/HCPCS: 77063; 77067; 77080

== ENCOUNTER 2021-02-20 09:36 | Inpatient (IN) | payer MEDICARE ==
[2021-02-20] MEDS ORDERED: SODIUM CHLORIDE 0.9% 1,000 ML IV ONE ×2 (09:55→13:16)
[2021-02-20] MEDS ORDERED: ONDANSETRON 4 MG/2 ML VIAL IVP STA (09:55)
[2021-02-20] MEDS ORDERED: SODIUM CHLORIDE 0.9% 500 ML 500 ML IV ONE (09:55)
[2021-02-20] MEDS ORDERED: DIPHENOX-ATROP STARTER PACK 8 TAB BTL PO STA (09:55)
--- NOTE | 2021-02-20 10:18 | ED ---
General Adult HPI - General Chief complaint: Nausea/Vomiting/Diarrhea Stated complaint: vomiting & diarrhea Time Seen by Provider: 02/20/21 09:40 Source: patient, RN notes reviewed, old records reviewed Mode of arrival: ambulatory Limitations: no limitations - History of Present Illness Initial comments: This a 80-year-old female presents emergency Department complaining of a weeklong history of diarrhea and vomiting. Patient also states she's had a cough that is progressively getting worse and productive now. Patient denies any fever chills. Patient denies abdominal pain. Patient is chest pain or palpitations. Patient denies headache patient denies numbness weakness. - Related Data Home Medications Medication Instructions Recorded Confirmed Levothyroxine Sodium [Synthroid] 137 mcg PO DAILY 08/08/15 02/20/21 amLODIPine [Norvasc] 5 mg PO BID 08/08/15 02/20/21 atenoloL 25 mg PO DAILY 08/08/15 02/20/21 Cholecalciferol [Vitamin D3] 1,000 unit PO HS 10/21/15 02/20/21 Ezetimibe [Zetia] 10 mg PO HS 10/21/15 02/20/21 cloNIDine HCL [Clonidine HCl] 0.1 mg PO HS 01/20/16 02/20/21 hydrALAZINE HCL [Apresoline] 75 mg PO BID 01/20/16 02/20/21 Aspirin [Adult Low Dose Aspirin EC] 81 mg PO HS 03/03/18 02/20/21 Lutein 20 mg PO DAILY 03/03/18 02/20/21 Blanco-3 Fatty Acids/Fish Oil [Fish 1 cap PO DAILY 02/20/21 02/20/21 Oil 1,000 mg Softgel] Pantoprazole [Protonix] 40 mg PO HS 02/20/21 02/20/21 hydroCHLOROthiazide [Hydrodiuril] 25 mg PO DAILY 02/20/21 02/20/21 predniSONE See Taper PO DAILY 02/20/21 02/20/21 Allergies Allergy/AdvReac Type Severity Reaction Status Date / Time codeine Allergy Hallucinati Verified 02/20/21 12:31 ons lisinopril Allergy Swelling Verified 02/20/21 12:31 scopolamine Allergy Hallucinati Verified 02/20/21 12:31 ons nitrofurantoin AdvReac "makes me Verified 02/20/21 12:31 [From Macrobid] jacqueline" Review of Systems ROS Statement: Those systems with pertinent positive or pertinent negative responses have been documented in the HPI. ROS Other: All systems not noted in ROS Statement are negative. Past Medical History Past Medical History: Cancer, CVA/TIA, GERD/Reflux, Hyperlipidemia, Hypertension, Osteoarthritis (OA), Sleep Apnea/CPAP/BIPAP Additional Past Medical History / Comment(s): hx heart murmur, stroke 2007-no residual effects, hx. basal cell skin cancer, GALLBLADDER ATTACK, hx shingles History of Any Multi-Drug Resistant Organisms: None Reported Past Surgical History: Appendectomy, Heart Catheterization, Joint Replacement, Tubal Ligation Additional Past Surgical History / Comment(s): left knee replaced, Mohs procedure-skin cancer, COLONOSCOPY Past Anesthesia/Blood Transfusion Reactions: No Reported Reaction Past Psychological History: No Psychological Hx Reported Smoking Status: Former smoker Past Alcohol Use History: Rare Past Drug Use History: None Reported - Past Family History Mother Family Medical History: Hypertension Father Family Medical History: COPD, Coronary Artery Disease (CAD) General Exam - General Exam Comments Initial Comments: GENERAL: Patient is well-developed and well-nourished. Patient is nontoxic and well- hydrated and is in mild distress. ENT: Neck is soft and supple. No significant lymphadenopathy is noted. Oropharynx is clear. Moist mucous membranes. Neck has full range of motion without eliciting any pain. EYES: The sclera were anicteric and conjunctiva were pink and moist. Extraocular movements were intact and pupils were equal round and reactive to light. Eyelids were unremarkable. PULMONARY: Unlabored respirations. Good breath sounds bilaterally. No audible rales rhonchi or wheezing was noted. CARDIOVASCULAR: There is a regular rate and rhythm without any murmurs gallops or rubs. ABDOMEN: Soft and nontender with normal bowel sounds. SKIN: Skin is clear with no lesions or rashes and otherwise unremarkable. NEUROLOGIC: Patient is alert and oriented x3. Cranial nerves II through XII are grossly intact. Motor and sensory are also intact. Normal speech, volume and content. Symmetrical smile. MUSCULOSKELETAL: Normal extremities with adequate strength and full range of motion. LYMPHATICS: No significant lymphadenopathy is noted PSYCHIATRIC: Normal psychiatric evaluation. Limitations: no limitations Course Vital Signs 02/20/21 09:38 Temperature 98 F Pulse Rate 56 L Respiratory 18 Rate Blood Pressure 140/102 O2 Sat by Pulse 94 L Oximetry Medical Decision Making - Medical Decision Making Patient received Zofran and fluids and Lomotil in the emergency department. Patient's sodium was 1:15 Patient will be admitted I spoke with Dr. Ba he agreed to admit the patient admitted the patient wrote admitting orders. - Lab Data Result diagrams: 02/20/21 10:22 02/20/21 10:22 Lab Results 02/20/21 02/20/21 Range/Units 10:22 10:22 WBC 15.0 H (3.8-10.6) k/uL RBC 4.49 (3.80-5.40) m/uL Hgb 14.0 (11.4-16.0) gm/dL Hct 39.5 (34.0-46.0) % MCV 88.0 (80.0-100.0) fL MCH 31.1 (25.0-35.0) pg MCHC 35.4 (31.0-37.0) g/dL RDW 11.9 (11.5-15.5) % Plt Count 409 (150-450) k/uL MPV 6.8 Neutrophils % 79 % Lymphocytes % 12 % Monocytes % 8 % Eosinophils % 1 % Basophils % 0 % Neutrophils # 11.8 H (1.3-7.7) k/uL Lymphocytes # 1.8 (1.0-4.8) k/uL Monocytes # 1.1 H (0-1.0) k/uL Eosinophils # 0.1 (0-0.7) k/uL Basophils # 0.0 (0-0.2) k/uL Sodium 115 L* (137-145) mmol/L Potassium 3.1 L (3.5-5.1) mmol/L Chloride 75 L (98-107) mmol/L Carbon Dioxide 29 (22-30) mmol/L Anion Gap 11 mmol/L BUN 19 H (7-17) mg/dL Creatinine 0.80 (0.52-1.04) mg/dL Est GFR (CKD-EPI)AfAm 81 (>60 ml/min/1.73 sqM) Est GFR (CKD-EPI)NonAf 71 (>60 ml/min/1.73 sqM) Glucose 127 H (74-99) mg/dL Calcium 9.6 (8.4-10.2) mg/dL Magnesium 2.5 H (1.6-2.3) mg/dL Total Bilirubin 0.6 (0.2-1.3) mg/dL AST 50 H (14-36) U/L ALT 44 H (4-34) U/L Alkaline Phosphatase 66 (38-126) U/L Total Protein 6.8 (6.3-8.2) g/dL Albumin 4.1 (3.5-5.0) g/dL Disposition Clinical Impression: Gastroenteritis, Hyponatremia Disposition: ADMITTED IP TO THIS HOSP Referrals: Nathaniel Ba MD [Primary Care Provider] - 1-2 days Time of Disposition: 13:14
--- NOTE | 2021-02-20 10:19 | XR ---
EXAMINATION TYPE: XR chest 2V DATE OF EXAM: 02/20/2021 COMPARISON: 11/04/2012 INDICATION: Difficulty breathing, weakness TECHNIQUE: Frontal and lateral views of the chest are obtained. FINDINGS: The heart size is normal. The pulmonary vasculature is normal. The lungs are clear. IMPRESSION: 1. No acute pulmonary process.
[2021-02-20 10:49] LABS: Basophils % (A) 0 %; Eosinophils # (A) 0.1 k/uL (0-0.7); Eosinophils % (A) 1 %; HCT 39.5 % (34.0-46.0); Lymphocytes # (A) 1.8 k/uL (1.0-4.8); Lymphocytes % (A) 12 %; MCH 31.1 pg (25.0-35.0); MCHC 35.4 g/dL (31.0-37.0); Mean Platelet Volume 6.8; Monocytes # (A) 1.1 k/uL (0-1.0); Monocytes % (A) 8 %; Neutrophils # (A) 11.8 k/uL (1.3-7.7); Neutrophils % (A) 79 %; Platelet Count 409 k/uL (150-450); RBC 4.49 m/uL (3.80-5.40); RDW 11.9 % (11.5-15.5)
[2021-02-20 11:20] LABS: Albumin 4.1 g/dL (3.5-5.0); Calcium 9.6 mg/dL (8.4-10.2); Magnesium 2.5 mg/dL (1.6-2.3); Potassium 3.1 mmol/L (3.5-5.1); Total Bilirubin 0.6 mg/dL (0.2-1.3); Total Protein 6.8 g/dL (6.3-8.2)
[2021-02-20] MEDS ORDERED: DIPHENOX-ATROP 2.5-0.025 MG 1 EACH TAB PO STA (11:52)
[2021-02-20] MEDS ORDERED: ONDANSETRON 4 MG/2 ML VIAL IVP PRN (13:17)
[2021-02-20] MEDS ORDERED: POTASSIUM CHLORIDE 20 MEQ in WATER FOR INJECTION 1 100ML.BAG IVPB STA (13:24)
[2021-02-20 14:06] LABS: Appearance,Urine Clear (Clear); Bacteria,Urine Moderate /hpf; Bilirubin,Urine Negative (Negative); Blood,Urine Negative (Negative); Color,Urine Light Yellow; Glucose,Urine (UA) Negative (Negative); Ketones,Urine 1+ (Negative); Leukocyte Esterase,Urine Small (Negative); Mucus,Urine Rare /hpf; Nitrite,Urine Negative (Negative); PH, Urine 6.5 (5.0-8.0); Protein,Urine 1+ (Negative); RBC,Urine <1 /hpf (0-5); Specific Gravity,Urine 1.009 (1.001-1.035); Squamous Epithelial Cell,Urine 1 /hpf (0-4); Urobilinogen,Urine <2.0 mg/dL (<2.0); WBC,Urine 7 /hpf (0-5)
[2021-02-20] MEDS ORDERED: Potassium Replacement Protocol 1 EACH MISC MISCELLANE PRN (17:43)
[2021-02-20] MEDS: PANTOPRAZOLE 40 MG/10 ML VIAL IVP SCH (19:04)
[2021-02-20] MEDS: cloNIDine HCL 0.1 MG TAB PO SCH (20:20)
[2021-02-20] MEDS: hydrALAZINE HCL 25 MG TAB PO SCH (20:20)
[2021-02-20] MEDS: ASPIRIN 81 MG PO SCH (20:20)
[2021-02-20] MEDS: EZETIMIBE 10 MG TAB PO SCH (20:20)
[2021-02-20] MEDS: amLODIPine 5 MG TAB PO SCH (20:20)
[2021-02-20] MEDS: CHOLECALCIFEROL 25 MCG (1000 IU) TABLET PO SCH (20:27)
[2021-02-21] MEDS: LEVOTHYROXINE 137 MCG TAB PO SCH (06:31)
[2021-02-21] MEDS ORDERED: NON FORMULARY DRUG (Lutein [Lutein] 20 MG Capsule) PO SCH (09:00)
--- NOTE | 2021-02-21 09:17 | P.HPIM ---
History of Present Illness This a 80-year-old female well known to me. She presented to the emergency Department yesterday complaining of a weeklong history of diarrhea and vomiting. Patient had a cough that is progressively getting worse and productive now. Patient denies any fever chills. Patient denies abdominal pain. Patient is chest pain or palpitations. Patient denies headache patient denies numbness weakness. SHe had been in the office for this twiice but symptoms failed to resolve with antimetics for nausea, OTC antidiarrheals, mucinex and steroids for cough. In the er she was found to have dehydration, electrolye abnormalities, but a normal cxr. Review of Systems All systems: negative Past Medical History Past Medical History: Cancer, CVA/TIA, GERD/Reflux, Hyperlipidemia, Hypertension, Osteoarthritis (OA), Sleep Apnea/CPAP/BIPAP Additional Past Medical History / Comment(s): hx heart murmur, stroke 2007-no residual effects, hx. basal cell skin cancer, GALLBLADDER ATTACK, hx shingles History of Any Multi-Drug Resistant Organisms: None Reported Past Surgical History: Appendectomy, Heart Catheterization, Joint Replacement, Tubal Ligation Additional Past Surgical History / Comment(s): left knee replaced, Mohs procedure-skin cancer, COLONOSCOPY Past Anesthesia/Blood Transfusion Reactions: No Reported Reaction Past Psychological History: No Psychological Hx Reported Smoking Status: Former smoker Past Alcohol Use History: Rare Additional Past Alcohol Use History / Comment(s): quit smoking 40 yrs. ago, 1ppd Past Drug Use History: None Reported - Past Family History Mother Family Medical History: Hypertension Father Family Medical History: COPD, Coronary Artery Disease (CAD) Medications and Allergies Home Medications Medication Instructions Recorded Confirmed Type Levothyroxine Sodium [Synthroid] 137 mcg PO DAILY 08/08/15 02/20/21 History amLODIPine [Norvasc] 5 mg PO BID 08/08/15 02/20/21 History atenoloL 25 mg PO DAILY 08/08/15 02/20/21 History Cholecalciferol [Vitamin D3] 1,000 unit PO HS 10/21/15 02/20/21 History Ezetimibe [Zetia] 10 mg PO HS 10/21/15 02/20/21 History cloNIDine HCL [Clonidine HCl] 0.1 mg PO HS 01/20/16 02/20/21 History hydrALAZINE HCL [Apresoline] 75 mg PO BID 01/20/16 02/20/21 History Aspirin [Adult Low Dose Aspirin EC] 81 mg PO HS 03/03/18 02/20/21 History Lutein 20 mg PO DAILY 03/03/18 02/20/21 History R[place]as-3 Fatty Acids/Fish Oil [Fish 1 cap PO DAILY 02/20/21 02/20/21 History Oil 1,000 mg Softgel] Pantoprazole [Protonix] 40 mg PO HS 02/20/21 02/20/21 History hydroCHLOROthiazide [Hydrodiuril] 25 mg PO DAILY 02/20/21 02/20/21 History predniSONE See Taper PO DAILY 02/20/21 02/20/21 History Allergies Allergy/AdvReac Type Severity Reaction Status Date / Time codeine Allergy Hallucinati Verified 02/20/21 12:31 ons lisinopril Allergy Swelling Verified 02/20/21 12:31 scopolamine Allergy Hallucinati Verified 02/20/21 12:31 ons nitrofurantoin AdvReac "makes me Verified 02/20/21 12:31 [From Macrobid] antsy" Physical Exam Vitals: Vital Signs Temp Pulse Pulse Resp BP BP Pulse Ox 02/21/21 03:15 56 L 18 140/61 95 02/20/21 22:55 98 F 50 L 17 120/64 92 L 02/20/21 19:30 98.3 F 54 L 18 132/54 95 02/20/21 17:11 97.9 F 56 L 16 187/70 96 02/20/21 09:38 98 F 56 L 18 140/102 94 L Intake and Output 02/20/21 02/21/21 02/21/21 22:59 06:59 14:59 Intake Total 255 118 Output Total 500 Balance 255 -500 118 Intake: IV 75 Sodium Chloride 0.9% 1, 75 000 ml @ 75 mls/hr IV . [id number] ONE Rx#:[id number] Oral 180 118 Output: Urine 500 Other: Voiding Method Bedside Commode Bedside Commode # Voids 1 1 # Bowel Movements 1 Weight 83.86 kg 83.2 kg - Constitutional General appearance: obese - EENT Eyes: PERRLA ENT: normal oropharynx - Neck Neck: no lymphadenopathy, no thyromegaly Carotids: bilateral: bruit absent Thyroid: bilateral: normal size - Respiratory Respiratory: bilateral: CTA - Cardiovascular Rhythm: regular Heart sounds: normal: S1, S2 Abnormal Heart Sounds: no systolic murmur - Gastrointestinal General gastrointestinal: normal bowel sounds - Neurologic Neurologic: CNII-XII intact - Musculoskeletal Musculoskeletal: gait normal - Psychiatric Psychiatric: A&O x's 3, appropriate affect, intact judgment & insight Results CBC & Chem 7: 02/20/21 10:22 02/20/21 10:22 Labs: Abnormal Lab Results - Last 24 Hours (Table) 02/20/21 02/20/21 02/20/21 Range/Units 10:22 10:22 10:22 WBC 15.0 H (3.8-10.6) k/uL Neutrophils # 11.8 H (1.3-7.7) k/uL Monocytes # 1.1 H (0-1.0) k/uL Sodium 115 L* (137-145) mmol/L Potassium 3.1 L (3.5-5.1) mmol/L Chloride 75 L (98-107) mmol/L BUN 19 H (7-17) mg/dL Glucose 127 H (74-99) mg/dL Magnesium 2.5 H (1.6-2.3) mg/dL AST 50 H (14-36) U/L ALT 44 H (4-34) U/L Urine Protein 1+ H (Negative) Urine Ketones 1+ H (Negative) Ur Leukocyte Esterase Small H (Negative) Urine WBC 7 H (0-5) /hpf Urine Bacteria Moderate H (None) /hpf Urine Mucus Rare H (None) /hpf Chest x-ray: report reviewed Thrombosis Risk Factor Assmnt - DVT/VTE Prophylaxis DVT/VTE Prophylaxis: Pharmacologic Prophylaxis ordered - Choose All That Apply Each Factor Represents 1 point: Obesity (BMI >25) Each Risk Factor Represents 3 Points: Age 75 years or older Thrombosis Risk Factor Assessment Total Risk Factor Score: 4 Thrombosis Risk Factor Assessment Level: Moderate Risk Assessment and Plan (1) Hypokalemia Current Visit: Yes Status: Acute Code(s): E87.6 - HYPOKALEMIA SNOMED Code(s): 51822430 (2) Mild dehydration Current Visit: Yes Status: Acute Code(s): E86.0 - DEHYDRATION SNOMED Code(s): 8088284317580 (3) Bronchitis Current Visit: Yes Status: Acute Code(s): J40 - BRONCHITIS, NOT SPECIFIED ACUTE OR CHRONIC SNOMED Code(s): 48471090 (4) Gastroenteritis Current Visit: Yes Status: Acute Code(s): K52.9 - NONINFECTIVE GASTROENTERITIS AND COLITIS, UNSPECIFIED SNOMED Code(s): 00431228 (5) Hyponatremia Current Visit: Yes Status: Acute Code(s): E87.1 - HYPO-OSMOLALITY AND HYPONATREMIA SNOMED Code(s): 22679456 Plan: ambulate ad lucrecia continue iv fluid hydration continue KCL protocol wait on am labs increase PO intake as tolerated repeat labs in am recehck in the next 24 hours
[2021-02-21] MEDS ORDERED: HEPARIN SODIUM,PORCINE 5,000 UNIT/ML 1 ML VIAL SQ SCH (09:30)
[2021-02-21] MEDS: predniSONE 10 MG TAB PO SCH (09:30)
[2021-02-21] MEDS: hydrALAZINE HCL 25 MG TAB PO SCH ×2 (09:30→20:03)
[2021-02-21] MEDS: hydroCHLOROthiazide 25 MG TAB PO SCH (09:30)
[2021-02-21] MEDS: PANTOPRAZOLE 40 MG/10 ML VIAL IVP SCH (09:30)
[2021-02-21] MEDS: amLODIPine 5 MG TAB PO SCH ×2 (09:30→20:03)
[2021-02-21] MEDS: atenoloL 25 MG TAB PO SCH (09:31)
[2021-02-21 10:30] LABS: African American GFR (CKD) >90 (>60 ml/min/1.73 sqM); Anion Gap 8 mmol/L; Blood Urea Nitrogen 13 mg/dL (7-17); Calcium 8.9 mg/dL (8.4-10.2); Carbon Dioxide 28 mmol/L (22-30); Chloride 89 mmol/L (98-107); Glucose 134 mg/dL (74-99); Non-African American GFR(CKD) 82 (>60 ml/min/1.73 sqM); Potassium 3.3 mmol/L (3.5-5.1); Sodium 125 mmol/L (137-145)
[2021-02-21 10:44] LABS: Basophils # (A) 0.1 k/uL (0-0.2); Basophils % (A) 0 %; Eosinophils # (A) 0.1 k/uL (0-0.7); Eosinophils % (A) 1 %; HCT 37.5 % (34.0-46.0); HGB 12.9 gm/dL (11.4-16.0); Lymphocytes # (A) 2.1 k/uL (1.0-4.8); Lymphocytes % (A) 19 %; MCH 31.5 pg (25.0-35.0); MCHC 34.3 g/dL (31.0-37.0); MCV 91.8 fL (80.0-100.0); Monocytes # (A) 0.9 k/uL (0-1.0); Monocytes % (A) 8 %; Neutrophils # (A) 8.1 k/uL (1.3-7.7); Neutrophils % (A) 71 %; Platelet Count 379 k/uL (150-450); RBC 4.09 m/uL (3.80-5.40); RDW 12.2 % (11.5-15.5); WBC 11.3 k/uL (3.8-10.6)
[2021-02-21] MEDS: POTASSIUM CHLORIDE ER 20 MEQ TAB.ER PO SCH (16:50)
[2021-02-21] MEDS: HEPARIN SODIUM,PORCINE/PF 5,000 UNIT/0.5 ML SYRINGE SQ SCH ×2 (16:50→20:02)
[2021-02-21] MEDS: EZETIMIBE 10 MG TAB PO SCH (20:03)
[2021-02-21] MEDS: CHOLECALCIFEROL 25 MCG (1000 IU) TABLET PO SCH (20:03)
[2021-02-21] MEDS: ASPIRIN 81 MG PO SCH (20:03)
[2021-02-21] MEDS: cloNIDine HCL 0.1 MG TAB PO SCH (20:03)
[2021-02-22] MEDS: LEVOTHYROXINE 137 MCG TAB PO SCH (06:39)
[2021-02-22] MEDS: hydrALAZINE HCL 25 MG TAB PO SCH ×2 (08:30→20:22)
[2021-02-22] MEDS: amLODIPine 5 MG TAB PO SCH ×2 (08:30→20:22)
[2021-02-22] MEDS: PANTOPRAZOLE 40 MG/10 ML VIAL IVP SCH (08:30)
[2021-02-22] MEDS: predniSONE 10 MG TAB PO SCH (08:30)
[2021-02-22] MEDS: atenoloL 25 MG TAB PO SCH (08:30)
[2021-02-22] MEDS: hydroCHLOROthiazide 25 MG TAB PO SCH (08:30)
[2021-02-22] MEDS: HEPARIN SODIUM,PORCINE/PF 5,000 UNIT/0.5 ML SYRINGE SQ SCH ×2 (08:30→20:22)
[2021-02-22 09:07] LABS: Basophils % (A) 0 %; Eosinophils # (A) 0.1 k/uL (0-0.7); Eosinophils % (A) 1 %; HCT 37.9 % (34.0-46.0); HGB 12.5 gm/dL (11.4-16.0); Lymphocytes # (A) 3.1 k/uL (1.0-4.8); Lymphocytes % (A) 28 %; MCHC 32.9 g/dL (31.0-37.0); Mean Platelet Volume 7.3; Monocytes # (A) 0.6 k/uL (0-1.0); Monocytes % (A) 5 %; Neutrophils # (A) 7.2 k/uL (1.3-7.7); Neutrophils % (A) 64 %; Platelet Count 377 k/uL (150-450); RBC 4.04 m/uL (3.80-5.40); RDW 12.4 % (11.5-15.5); WBC 11.2 k/uL (3.8-10.6)
[2021-02-22 09:22] LABS: African American GFR (CKD) >90 (>60 ml/min/1.73 sqM); Anion Gap 7 mmol/L; Blood Urea Nitrogen 12 mg/dL (7-17); Calcium 9.1 mg/dL (8.4-10.2); Carbon Dioxide 29 mmol/L (22-30); Chloride 89 mmol/L (98-107); Glucose 139 mg/dL (74-99); Magnesium 1.9 mg/dL (1.6-2.3); Non-African American GFR(CKD) 86 (>60 ml/min/1.73 sqM); Potassium 3.7 mmol/L (3.5-5.1); Sodium 125 mmol/L (137-145)
--- NOTE | 2021-02-22 11:55 | P.PN ---
Subjective This a 80-year-old female well known to me. She presented to the emergency Department yesterday complaining of a weeklong history of diarrhea and vomiting. Patient had a cough that is progressively getting worse and productive now. Patient denies any fever chills. Patient denies abdominal pain. Patient is chest pain or palpitations. Patient denies headache patient denies numbness weakness. SHe had been in the office for this twiice but symptoms failed to resolve with antimetics for nausea, OTC antidiarrheals, mucinex and steroids for cough. In the er she was found to have dehydration, electrolye abnormalities, but a normal cxr. 02/22/2021: Patient feels better. She denies any nausea since her admission. She denied any diarrhea, but does not have bowel movement either. Slightly stronger. She denies any chest pains, pressures, shortness breath. She reports cough is ongoing and productive green mucus. Vital signs are stable. Labs show there is count 11.2. Chemistries now show potassium normal but sodium readings 125. Her GFR is 86. Objective - Vital Signs Vital signs: Vital Signs Temp 97.8 F 02/22/21 08:25 Pulse 55 L 02/22/21 08:25 Resp 17 02/22/21 08:25 BP 117/70 02/22/21 08:25 Pulse Ox 98 02/22/21 08:25 Intake & Output 02/21/21 02/22/21 02/22/21 18:59 06:59 18:59 Intake Total 358 240 240 Output Total 1 1400 Balance 357 -1160 240 Weight 83.6 kg Intake: Oral 358 240 240 Output: Urine 1 1400 Other: Voiding Method Bedside Commode Bedside Commode # Voids 2 1 - Exam General: The patient is awake and alert, in no distress, and does not appear acutely ill. Neck: The neck is supple, there is no thyromegaly, lymphadenopathy, tenderness or JVD. Cardiovascular: S1S2 is normal, There is a regular rate and rhythm. No murmur, rub or gallop is appreciated. Respiratory: Lungs are somewhat coarse to auscultation bilaterally, respirat ions are non-labored, breath sounds are equal. Gastrointestinal: Soft, non-distended, non-tender abdomen without masses or organomegaly noted. There is no rebound or guarding present. Bowel sounds are unremarkable. Musculoskeletal: Normal ROM, no tenderness, There is no pedal edema. There is no calf tenderness or swelling. No cords were appreciated. Neurological: CN II-XII intact, there are no obvious motor or sensory deficits. Coordination appears grossly intact. Speech is normal. Skin: Skin is warm and dry and no rashes or lesions are noted. - Labs CBC & Chem 7: 02/22/21 08:15 02/22/21 08:15 Labs: Abnormal Lab Results - Last 24 Hours (Table) 02/22/21 02/22/21 Range/Units 08:15 08:15 WBC 11.2 H (3.8-10.6) k/uL Sodium 125 L (137-145) mmol/L Chloride 89 L (98-107) mmol/L Glucose 139 H (74-99) mg/dL Assessment and Plan (1) Hypokalemia Current Visit: Yes Status: Acute Code(s): E87.6 - HYPOKALEMIA SNOMED Code(s): 27734802 (2) Mild dehydration Current Visit: Yes Status: Acute Code(s): E86.0 - DEHYDRATION SNOMED Code(s): 9029115908670 (3) Bronchitis Current Visit: Yes Status: Acute Code(s): J40 - BRONCHITIS, NOT SPECIFIED ACUTE OR CHRONIC SNOMED Code(s): 41835021 (4) Gastroenteritis Current Visit: Yes Status: Acute Code(s): K52.9 - NONINFECTIVE GASTROENTERITIS AND COLITIS, UNSPECIFIED SNOMED Code(s): 25187197 (5) Hyponatremia Current Visit: Yes Status: Acute Code(s): E87.1 - HYPO-OSMOLALITY AND HYPONATREMIA SNOMED Code(s): 66490329 Plan: ambulate ad lucrecia continue iv fluid hydration continue KCL protocol wait on am labs increase PO intake as tolerated repeat labs in am Check spot urine sodium, serum and urine osmolality for evaluation of the hyponatremic, but it is most likely due to hydration. CT chest to evaluate her ongoing cough. Rocephin will be added 1 g daily recehck in the next 24 hours
--- NOTE | 2021-02-22 12:37 | CT ---
EXAMINATION TYPE: CT chest wo con DATE OF EXAM: 02/22/2021 COMPARISON: Chest x-ray 02/20/2021 HISTORY: Unexplained cough CT DLP: 384.7 mGycm. Automated Exposure Control for Dose Reduction was Utilized. TECHNIQUE: CT scan of the thorax is performed without IV contrast. FINDINGS: Lack of contrast could compromise sensitivity. LUNGS: The lungs are showing some probable basilar scarring, interstitial changes. Nodular density as sociated with the fissure on axial image 24 in the left midlung measures only 5 to 6 mm, likely benig n, questionable subcentimeter nodule on axial image #22, only 3 to 4 mm. Some scattered emphysematous changes are present. There is no pleural effusion or pneumothorax seen. The tracheobronchial tree is patent. MEDIASTINUM: Lack of IV contrast is noted to limit evaluation for mediastinal and especially hilar ad enopathy. There are no definitive greater than 1 cm hilar or mediastinal lymph nodes. The heart is en larged. There are calcifications at the root of the aorta and within the coronary arteries. Enlarged pulmonary artery could be indicative of pulmonary artery hypertension OTHER: There is a hiatal hernia present with partial intrathoracic stomach. Posterior diaphragmatic h ernias contain fat bilaterally. Patient is post cholecystectomy, suspect there is a duodenal divertic ulum partially visualized. Bones show no suspicious abnormality. IMPRESSION: There are some interstitial changes, hiatal hernia, coronary artery calcification, consid er pulmonary artery hypertension, there is cardiomegaly. Additional findings above.
[2021-02-22] MEDS ORDERED: POTASSIUM CHLORIDE ER 20 MEQ TAB.ER PO SCH (13:00)
[2021-02-22] MEDS: cloNIDine HCL 0.1 MG TAB PO SCH (20:22)
[2021-02-22] MEDS: ASPIRIN 81 MG PO SCH (20:22)
[2021-02-22] MEDS: EZETIMIBE 10 MG TAB PO SCH (20:22)
[2021-02-22] MEDS: CHOLECALCIFEROL 25 MCG (1000 IU) TABLET PO SCH (20:23)
[2021-02-23] MEDS: LEVOTHYROXINE 137 MCG TAB PO SCH (06:37)
[2021-02-23] MEDS ORDERED: PANTOPRAZOLE 40 MG TABLET PO SCH (07:30)
[2021-02-23 08:44] LABS: Basophils # (A) 0.1 k/uL (0-0.2); Basophils % (A) 0 %; Eosinophils # (A) 0.1 k/uL (0-0.7); Eosinophils % (A) 1 %; HCT 41.3 % (34.0-46.0); HGB 13.5 gm/dL (11.4-16.0); Lymphocytes # (A) 3.8 k/uL (1.0-4.8); Lymphocytes % (A) 28 %; MCH 30.9 pg (25.0-35.0); MCHC 32.7 g/dL (31.0-37.0); MCV 94.7 fL (80.0-100.0); Mean Platelet Volume 6.9; Monocytes # (A) 0.6 k/uL (0-1.0); Monocytes % (A) 5 %; Neutrophils # (A) 8.7 k/uL (1.3-7.7); Neutrophils % (A) 65 %; Platelet Count 415 k/uL (150-450); RBC 4.36 m/uL (3.80-5.40); RDW 12.5 % (11.5-15.5); WBC 13.4 k/uL (3.8-10.6)
[2021-02-23] MEDS: hydrALAZINE HCL 25 MG TAB PO SCH (08:45)
[2021-02-23] MEDS: amLODIPine 5 MG TAB PO SCH (08:45)
[2021-02-23] MEDS: hydroCHLOROthiazide 25 MG TAB PO SCH (08:45)
[2021-02-23] MEDS: predniSONE 10 MG TAB PO SCH (08:45)
[2021-02-23] MEDS: atenoloL 25 MG TAB PO SCH (08:45)
[2021-02-23] MEDS: HEPARIN SODIUM,PORCINE/PF 5,000 UNIT/0.5 ML SYRINGE SQ SCH (08:46)
[2021-02-23 09:30] LABS: African American GFR (CKD) >90 (>60 ml/min/1.73 sqM); Anion Gap 9 mmol/L; Blood Urea Nitrogen 11 mg/dL (7-17); Calcium 9.5 mg/dL (8.4-10.2); Carbon Dioxide 29 mmol/L (22-30); Chloride 89 mmol/L (98-107); Glucose 145 mg/dL (74-99); Non-African American GFR(CKD) 82 (>60 ml/min/1.73 sqM); Potassium 3.8 mmol/L (3.5-5.1); Sodium 127 mmol/L (137-145)
[2021-02-23 14:58] VITALS: RESP 16
[2021-02-23 16:31] VITALS: BP 146/69; PULSE 65; TEMP 97.9
--- NOTE | 2021-02-24 12:33 | P.DS ---
Providers Date of admission: 02/20/21 13:16 Expected date of discharge: 02/23/21 Attending physician: Nathaniel Ba Primary care physician: Nathaniel Ba [facility] Course: (1) Hypokalemia, resolved Current Visit: Yes Status: Acute Code(s): E87.6 - HYPOKALEMIA SNOMED Code(s): 20727336 (2) Mild dehydration, improving Current Visit: Yes Status: Acute Code(s): E86.0 - DEHYDRATION SNOMED Code(s): 9296121390974 (3) Bronchitis, Current Visit: Yes Status: Acute Code(s): J40 - BRONCHITIS, NOT SPECIFIED ACUTE OR CHRONIC SNOMED Code(s): 61641375 (4) Gastroenteritis, improved Current Visit: Yes Status: Acute Code(s): K52.9 - NONINFECTIVE GASTROENTERITIS AND COLITIS, UNSPECIFIED SNOMED Code(s): 80248256 (5) Hyponatremia, improving Current Visit: Yes Status: Acute Code(s): E87.1 - HYPO-OSMOLALITY AND HYPONATREMIA SNOMED Code(s): 19259109 Possible histoplasmosis, Pulmonary nodules, hernias per chest CT, further follow-up outpatient This a 80-year-old female well known to me. She presented to the emergency Department yesterday complaining of a weeklong history of diarrhea and vomiting. Patient had a cough that is progressively getting worse and productive now. Patient denies any fever chills. Patient denies abdominal pain. Patient is chest pain or palpitations. Patient denies headache patient denies numbness weakness. SHe had been in the office for this twiice but symptoms failed to resolve with antimetics for nausea, OTC antidiarrheals, mucinex and steroids for cough. In the er she was found to have dehydration, electrolye abnormalities, but a normal cxr. 02/22/2021: Patient feels better. She denies any nausea since her admission. She denied any diarrhea, but does not have bowel movement either. Slightly stronger. She denies any chest pains, pressures, shortness breath. She reports cough is ongoing and productive green mucus. Vital signs are stable. Labs show there is count 11.2. Chemistries now show potassium normal but sodium readings 125. Her GFR is 86. Cough nearly resolved. Afebrile, WBC 13.4. Maintaining O2 sats in the high 90s on room air. Sodium continues to improve up to 127. Renal function stable. Chest CT reported some interstitial changes, hiatal hernia, CAD, consider pulmonary artery hypertension, cardiomegaly, interstitial changes, nodular density with the fissure in the left mid lung measuring 5-6 mm, likely benign, questionable subcentimeter nodule 3-4 mm, some scattered emphysema, no definite greater than 1 cm hilar or mediastinal lymph nodes, hiatal hernia present with partial intrathoracic stomach, posterior diaphragmatic hernias containing fat bilaterally- further follow-up outpatient in clinic. Antibiotics discontinued yesterday per PCP.Significant clinical improvement. Patient eager for discharge home. Significant clinical improvement. Patient will be discharged home today in a stable condition with guarded prognosis. The impression and plan of care has been dictated as directed. : I performed a history and examination of this patient, discussed the same with the dictator. I agree with the dictator's note ,documented as a scribe. Any additional findings or plans will be noted. Patient Condition at Discharge: Stable Plan - Discharge Summary New Discharge Prescriptions: Continue amLODIPine [Norvasc] 5 mg PO BID Levothyroxine Sodium [Synthroid] 137 mcg PO DAILY atenoloL 25 mg PO DAILY Ezetimibe [Zetia] 10 mg PO HS Cholecalciferol [Vitamin D3 (25 Mcg = 1000 Iu)] 1,000 unit PO HS hydrALAZINE HCL [Apresoline] 75 mg PO BID cloNIDine HCL 0.1 mg PO HS Aspirin [Adult Low Dose Aspirin EC] 81 mg PO HS Lutein 20 mg PO DAILY [place]-3 Fatty Acids/Fish Oil [Fish Oil 1,000 mg Softgel] 1 cap PO DAILY Pantoprazole [Protonix] 40 mg PO HS Discontinued hydroCHLOROthiazide [Hydrodiuril] 25 mg PO DAILY predniSONE See Taper PO DAILY Discharge Medication List Levothyroxine Sodium [Synthroid] 137 mcg PO DAILY 08/08/15 [History] amLODIPine [Norvasc] 5 mg PO BID 08/08/15 [History] atenoloL 25 mg PO DAILY 08/08/15 [History] Cholecalciferol [Vitamin D3 (25 Mcg = 1000 Iu)] 1,000 unit PO HS 10/21/15 [History] Ezetimibe [Zetia] 10 mg PO HS 10/21/15 [History] cloNIDine HCL 0.1 mg PO HS 01/20/16 [History] hydrALAZINE HCL [Apresoline] 75 mg PO BID 01/20/16 [History] Aspirin [Adult Low Dose Aspirin EC] 81 mg PO HS 03/03/18 [History] Lutein 20 mg PO DAILY 03/03/18 [History] [place]-3 Fatty Acids/Fish Oil [Fish Oil 1,000 mg Softgel] 1 cap PO DAILY 02/20/21 [History] Pantoprazole [Protonix] 40 mg PO HS 02/20/21 [History] Follow up Appointment(s)/Referral(s): Nathaniel Ba MD [Primary Care Provider] - 02/24/21 8:30 am Patient Instructions/Handouts: Gastritis (DC), Hyponatremia (DC) Discharge Disposition: HOME SELF-CARE
== END 2021-02-23 16:23 | disposition home or self-care (01) | DRG 392 ==
LOC: EC 09:36 → 3SCARD 13:16
PROVIDERS: ADMIT Family Medicine; ATTEND Family Medicine
DX: K52.9 Noninfective gastroenteritis and colitis, unspecified (principal); E87.1 Hypo-osmolality and hyponatremia; E78.5 Hyperlipidemia, unspecified; K44.9 Diaphragmatic hernia without obstruction or gangrene; I10 Essential (primary) hypertension; J43.9 Emphysema, unspecified; E86.0 Dehydration; Z20.822 Contact with and (suspected) exposure to COVID-19; E87.6 Hypokalemia; K21.9 Gastro-esophageal reflux disease without esophagitis; M19.90 Unspecified osteoarthritis, unspecified site; I25.10 Atherosclerotic heart disease of native coronary artery without angina pectoris; J40 Bronchitis, not specified as acute or chronic; Z88.5 Allergy status to narcotic agent; Z88.8 Allergy status to other drugs, medicaments and biological substances; Z79.82 Long term (current) use of aspirin; Z79.890 Hormone replacement therapy; Z79.899 Other long term (current) drug therapy; Z85.828 Personal history of other malignant neoplasm of skin; Z86.73 Personal history of transient ischemic attack (TIA), and cerebral infarction without residual deficits; Z87.891 Personal history of nicotine dependence; Z87.19 Personal history of other diseases of the digestive system; Z96.652 Presence of left artificial knee joint
CPT/HCPCS: 36415; 71046; 71250; 80048; 80053; 81001; 83735; 83930; 83935; 84300; 85025; 87635; 96361; 96374; 99285

== ENCOUNTER → 2021-02-27 | Outpatient (CLI) | payer MEDICARE ==
[2021-02-27 18:03] LABS: African American GFR (CKD) 81.4 (60.0-200.0); Anion Gap 11.2 mmol/L (4.00-12.00); BUN/Creat Ratio 16.27 Ratio (12.00-20.00); Calcium 9.2 mg/dL (8.7-10.3); Carbon Dioxide 24.4 mmol/L (21.6-31.8); Non-African American GFR(CKD) 70.2 (60.0-200.0); Potassium 4.4 mmol/L (3.5-5.5)
== END | disposition home or self-care (01) ==
LOC: LABWHC1 08:46
PROVIDERS: ATTEND Family Medicine
DX: Z09 Encounter for follow-up examination after completed treatment for conditions other than malignant neoplasm (principal); E87.1 Hypo-osmolality and hyponatremia
CPT/HCPCS: 36415; 80048

== ENCOUNTER → 2021-04-22 | Outpatient (CLI) | payer MEDICARE ==
[2021-04-22 11:22] LABS: ALT 18 U/L (8-44); AST 12 U/L (13-35); Chol/HDL Ratio 3.04 Ratio; LDL Cholesterol,Calculated 111.8 mg/dL (0.0-131.0); VLDL Calculation 15.76 mg/dL (5.00-40.00)
== END | disposition home or self-care (01) ==
LOC: LABWHC1 06:57
PROVIDERS: ATTEND Nurse Practitioner Adult Health
DX: E78.2 Mixed hyperlipidemia (principal)
CPT/HCPCS: 36415; 80061; 84450; 84460

== ENCOUNTER → 2021-06-19 | Outpatient (CLI) | payer MEDICARE ==
[2021-06-19 11:42] LABS: HCT 38.2 % (37.2-46.3); HGB 11.8 g/dL (12.0-15.0); MCH 29.9 pg (27.0-32.0); MCHC 30.9 g/dL (32.0-37.0); Mean Platelet Volume 10.1 fL (9.5-12.2); NRBC Per 100 WBC 0 /100 WBCS (0.0-0.0); Platelet Count 264 X 10*3/uL (140-440); RBC 3.94 X 10*6/uL (4.10-5.20); RDW 12.5 % (11.5-14.5)
[2021-06-19 12:08] LABS: African American GFR (CKD) 67.4 (60.0-200.0); Anion Gap 11.4 mmol/L (10.00-18.00); Blood Urea Nitrogen 21.3 mg/dL (9.0-27.0); Carbon Dioxide 25.3 mmol/L (20.0-27.5); Non-African American GFR(CKD) 58.2 (60.0-200.0); Potassium 4.1 mmol/L (3.5-5.5)
[2021-06-20 13:12] LABS: Coronavirus SARS CoV-2 Not Detected (Not Detected)
== END | disposition home or self-care (01) ==
LOC: LABPAT 06:58
PROVIDERS: ATTEND Internal Medicine Interventional Cardiology
DX: Z01.812 Encounter for preprocedural laboratory examination (principal); Z20.822 Contact with and (suspected) exposure to COVID-19; I25.10 Atherosclerotic heart disease of native coronary artery without angina pectoris
CPT/HCPCS: 80051; 82565; 84520; 85027; 36415; U0003; C9803

== ENCOUNTER 2021-06-23 06:05 | Day surgery (SDC) | payer MEDICARE ==
[2021-06-19 16:11] VITALS: BMI 32.0
[~2021-06-23 06:05] MED LIST changes: -ACETAMINOPHEN TAB 500 MG TAB PO ONE; +ALPRAZolam 0.25 MG TAB PO PRN; +ALPRAZolam 0.5 MG TAB PO PRN; -DEXAMETHASONE SOD PHOSPHATE 10 MG/ML 1 ML VIAL IV ONE; -HYDROmorphone 0.5 MG/0.5 ML SYRINGE IVP PRN; -MELOXICAM 7.5 MG TAB PO ONE; -MIDAZOLAM 2 MG/2 ML VIAL IV PRN; +NITROGLYCERIN SL TABS 0.4 MG TAB SUBLINGUAL PRN; -ONDANSETRON 4 MG/2 ML VIAL IVP ONE; -ROPIVACAINE 246.25 MG, EPINEPHrine 0.5 MG, KETOROLAC 30 MG, cloNIDine HCL/PF 80 MCG, WA... MISCELLANE ONE; +SODIUM CHLORIDE 0.9% 1,000 ML in EMPTY BAG 1 BAG IV ONE; -TRANEXAMIC ACID 1,000 MG in SODIUM CHLORIDE 0.9% 50 ML IVPB ONE; -ceFAZolin IN SWFI 2 GM/20 ML SYRINGE IVP ONE
[2021-06-23] MEDS ORDERED: SODIUM CHLORIDE 0.9% 1,000 ML IV ONE (06:20)
[2021-06-23 06:35] VITALS: RESP 16; TEMP 98.9
[2021-06-23] MEDS ORDERED: HEPARIN SODIUM,PORCINE 2,500 UNIT in SODIUM CHLORIDE 0.9% 250 ML IRRIGATION PRN (07:00)
[2021-06-23] MEDS ORDERED: HEPARIN SODIUM,PORCINE 10,000 UNIT in SODIUM CHLORIDE 0.9% 1,000 ML IRRIGATION PRN (07:00)
[2021-06-23] MEDS ORDERED: ASPIRIN 325 MG TAB PO ONE (07:00)
[2021-06-23] MEDS ORDERED: fentaNYL (PF) 50 MCG/ML 2 ML AMP IV ONE (07:33)
[2021-06-23] MEDS ORDERED: LIDOCAINE 1% INJ 10MG/ML (20 ML MDV) SQ ONE (07:38)
[2021-06-23] MEDS ORDERED: VERAPAMIL SYRINGE (5 MG/10 ML) INTRAARTER ONE (07:45)
[2021-06-23] MEDS ORDERED: HEPARIN SODIUM 1,000 UN/ML (10ML VL) IV ONE (07:51)
[2021-06-23] MEDS ORDERED: IOPAMIDOL-370 125ML BTL INJ ONE (07:58)
[2021-06-23] MEDS ORDERED: RX INFO: IV CONTRAST WAS GIVEN 1 EACH MISC MISCELLANE PRN (08:06)
--- NOTE | 2021-06-23 08:14 | P.CARDCATH ---
Date of Procedure: 06/23/21 Description of Procedure: Cardiac Catheterization: The patient is a 80-year-old female with a history of hypertension, hyperlipidemia who has been complaining of progressive dyspnea on exertion and had an abnormal MPI. Recommendations were made regarding cardiac catheterization, the risks and the complications were discussed with the patient who is in full understanding and agreement. Procedure Description: Patient was brought to woods laborer in fasting semi-sedated state after receiving Fentanyl and Benadryl achieiving moderate conscious sedated state. Using Xylocaine Anesthesia and Seldinger technique, a 6-[place] sheath was introduced in the right radial artery . Subsequently, selective coronary angiography performed using a 5-[place] 3.5 bend Yossi catheter. Multiple views of the coronary artery including hemiaxial views were obtained. The 5-[place] pigtail catheter was used to cross the aortic valve and LV EDP was calculated. Following that, catheter and sheath were removed. Hemostasis was obtained with deployment of TR band . There was no immediate complication. Patient was returned to room in stable condition. Of note, the patient received a total of 4500 units of intravenous heparin as well as intra-arterial verapamil. There was no immediate complications. Findings: Left main: This is a large size vessel, bifurcating into LAD and left circumflex, left main stenosis. LAD: This is a large size vessel, giving rise to a large proximal diagonal branch, the LAD at the takeoff of the diagonal branch has 10% plaque Left circumflex: This is a large nondominant vessel, giving rise to 3 obtuse marginal branch, the first one is the largest. The left circumflex has no obstructive disease. RCA: This is a dominant vessel, bifurcating into PDA and PLV, moderate in caliber. The mid RCA has a 10% plaque [Left] Ventriculogram: Was not performed Hemodynamics: There was no gradient across the aortic valve, LVEDP 20 mmHg Conclusion: 1. Mild obstructive disease in RCA and LAD 2. Right dominance 3. Mildly elevated LVEDP Recommendations: At this time I have recommended to continue aggressive coronary risks modification. The findings and recommendations were discussed with the patient and her family. Duration of sedation is 23 minutes.
[2021-06-23] MEDS ORDERED: SODIUM CHLORIDE 0.9% 1,000 ML IV SCH (08:15)
[2021-06-23] MEDS ORDERED: LEVOTHYROXINE 137 MCG TAB PO SCH (09:00)
[2021-06-23] MEDS ORDERED: NON FORMULARY DRUG (Lutein [Lutein] 20 MG Capsule) PO SCH (09:00)
[2021-06-23] MEDS ORDERED: amLODIPine 5 MG TAB PO SCH (09:00)
[2021-06-23] MEDS ORDERED: hydrALAZINE HCL 50 MG TAB PO SCH (09:00)
[2021-06-23] MEDS ORDERED: NON FORMULARY DRUG (Omega-3 Fatty Acids/Fish Oil [Fish Oil 1,000 Mg Softgel] 1 EACH Capsul PO SCH (09:00)
[2021-06-23] MEDS ORDERED: atenoloL 25 MG TAB PO SCH (09:00)
[2021-06-23 13:36] VITALS: BP 138/78; PULSE 54
[2021-06-23] MEDS ORDERED: cloNIDine HCL 0.1 MG TAB PO SCH (21:00)
[2021-06-23] MEDS ORDERED: NON FORMULARY DRUG (Cholecalciferol 1,000 UNIT Tab) PO SCH (21:00)
[2021-06-23] MEDS ORDERED: PANTOPRAZOLE 40 MG TABLET PO SCH (21:00)
[2021-06-23] MEDS ORDERED: NON FORMULARY DRUG (Aspirin [Adult Low Dose Aspirin Ec] 81 MG Tablet.Dr) PO SCH (21:00)
[2021-06-23] MEDS ORDERED: EZETIMIBE 10 MG TAB PO SCH (21:00)
== END 2021-06-23 12:12 | disposition home or self-care (01) ==
LOC: CATHCVL 06:05
PROVIDERS: ATTEND Internal Medicine Interventional Cardiology
DX: I25.10 Atherosclerotic heart disease of native coronary artery without angina pectoris (principal)
CPT/HCPCS: 93458; C1894; C1769; J2001; J3010; J1644; Q9967

== ENCOUNTER → 2021-10-29 | Outpatient (CLI) | payer MEDICARE ==
[2021-10-29 11:17] LABS: Basophils # (A) 0.03 X 10*3/uL (0.00-0.10); Basophils % (A) 0.5 %; Eosinophils # (A) 0.19 X 10*3/uL (0.04-0.35); Eosinophils % (A) 3.2 %; Immature Grans, Automated 0.2 %; Lymphocytes # (A) 2.17 X 10*3/uL (0.90-5.00); MCH 29.3 pg (27.0-32.0); MCHC 30.8 g/dL (32.0-37.0); MCV 95.1 fL (80.0-97.0); Monocytes # (A) 0.68 X 10*3/uL (0.20-1.00); Monocytes % (A) 11.6 %; NRBC Per 100 WBC 0 /100 WBCS (0.0-0.0); Neutrophils # (A) 2.79 X 10*3/uL (1.80-7.70); Neutrophils % (A) 47.5 %; Platelet Count 285 X 10*3/uL (140-440); RDW 13.1 % (11.5-14.5); WBC 5.87 X 10*3/uL (4.50-10.00)
[2021-10-29 12:18] LABS: ALT 13 U/L (8-44); AST 16 U/L (13-35); African American GFR (CKD) 80.7 (60.0-200.0); Albumin/Globulin Ratio 1.67 (1.60-3.17); Alkaline Phosphatase 62 U/L (41-126); BUN/Creat Ratio 17.25 Ratio (12.00-20.00); Blood Urea Nitrogen 13.8 mg/dL (9.0-27.0); Calcium 9.4 mg/dL (8.7-10.3); Carbon Dioxide 25.9 mmol/L (20.0-27.5); Chloride 103 mmol/L (96-109); Chol/HDL Ratio 3.26 Ratio; Globulin 2.4 g/dL (1.6-3.3); Glucose 104 mg/dL (70-110); LDL Cholesterol,Calculated 105.3 mg/dL (0.0-131.0); Non-African American GFR(CKD) 69.6 (60.0-200.0); Potassium 4.3 mmol/L (3.5-5.5); Sodium 140 mmol/L (135-145); Total Protein 6.4 g/dL (6.2-8.2)
== END | disposition home or self-care (01) ==
LOC: LABWHC1 06:55
PROVIDERS: ATTEND Family Medicine
DX: Z00.00 Encounter for general adult medical examination without abnormal findings (principal); Z12.31 Encounter for screening mammogram for malignant neoplasm of breast; I35.0 Nonrheumatic aortic (valve) stenosis; G47.33 Obstructive sleep apnea (adult) (pediatric); R19.7 Diarrhea, unspecified; Z99.89 Dependence on other enabling machines and devices
CPT/HCPCS: 36415; 80053; 80061; 84443; 85025

== ENCOUNTER 2022-01-01 16:06 | Emergency (ER) | payer MEDICARE, OTHER ==
[2022-01-01] MEDS ORDERED: SODIUM CHLORIDE 0.9% 1,000 ML IV STA (16:10)
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
[2022-01-01 16:23] VITALS: TEMP 97.8
[2022-01-01 16:29] LABS: Basophils # (A) 0.1 k/uL (0-0.2); Basophils % (A) 0 %; Eosinophils # (A) 0.2 k/uL (0-0.7); Eosinophils % (A) 1 %; HCT 40.1 % (34.0-46.0); HGB 12.7 gm/dL (11.4-16.0); Lymphocytes # (A) 2.5 k/uL (1.0-4.8); Lymphocytes % (A) 24 %; MCH 29.8 pg (25.0-35.0); MCHC 31.7 g/dL (31.0-37.0); MCV 94.2 fL (80.0-100.0); Mean Platelet Volume 7.2; Monocytes # (A) 0.5 k/uL (0-1.0); Monocytes % (A) 5 %; Neutrophils # (A) 7.1 k/uL (1.3-7.7); Neutrophils % (A) 69 %; Platelet Count 277 k/uL (150-450); RBC 4.26 m/uL (3.80-5.40); RDW 13.1 % (11.5-15.5); WBC 10.4 k/uL (3.8-10.6)
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
[2022-01-01 16:41] LABS: ALT 81 U/L (4-34); AST 109 U/L (14-36); African American GFR (CKD) 78 (>60 ml/min/1.73 sqM); Albumin 4.1 g/dL (3.5-5.0); Alcohol <10 mg/dL; Alkaline Phosphatase 60 U/L (38-126); Anion Gap 13 mmol/L; Blood Urea Nitrogen 23 mg/dL (7-17); Calcium 9.2 mg/dL (8.4-10.2); Carbon Dioxide 24 mmol/L (22-30); Chloride 99 mmol/L (98-107); Glucose 160 mg/dL (74-99); Non-African American GFR(CKD) 68 (>60 ml/min/1.73 sqM); Potassium 4.2 mmol/L (3.5-5.1); Sodium 136 mmol/L (137-145); Total Bilirubin 0.3 mg/dL (0.2-1.3); Total Protein 6.2 g/dL (6.3-8.2)
[2022-01-01 16:45] LABS: INR 0.9 (<1.2)
[2022-01-01 16:46] LABS: Partial Thromboplastin Time 21.7 sec (22.0-30.0)
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
[2022-01-01] MEDS ORDERED: ACETAMINOPHEN IV (For NPO) 1,000 MG in EMPTY BAG 1 BAG IVPB STA (17:35)
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
[2022-01-01 18:23] VITALS: BP 125/58; PULSE 54; RESP 18
[2022-01-01] MEDS ORDERED: HYDROmorphone 0.5 MG/0.5 ML SYRINGE IVP STA (18:47)
[2022-01-01] MEDS ORDERED: DIPH,PERTUS(ACELL)TETVAC-LF 0.5 ML VIAL IM ONE (19:58)
[2022-01-01] MEDS ORDERED: ONDANSETRON 4 MG/2 ML VIAL IVP STA (20:00)
== END 2022-01-01 20:26 | disposition other institution (70) ==
LOC: EC 16:06
DX: S22.41XA Multiple fractures of ribs, right side, initial encounter for closed fracture (principal); S92.341A Displaced fracture of fourth metatarsal bone, right foot, initial encounter for closed fracture; S92.351A Displaced fracture of fifth metatarsal bone, right foot, initial encounter for closed fracture; S92.322A Displaced fracture of second metatarsal bone, left foot, initial encounter for closed fracture; S92.332A Displaced fracture of third metatarsal bone, left foot, initial encounter for closed fracture; S92.342A Displaced fracture of fourth metatarsal bone, left foot, initial encounter for closed fracture; S92.352A Displaced fracture of fifth metatarsal bone, left foot, initial encounter for closed fracture; S82.832A Other fracture of upper and lower end of left fibula, initial encounter for closed fracture; S92.101A Unspecified fracture of right talus, initial encounter for closed fracture; I10 Essential (primary) hypertension; E78.5 Hyperlipidemia, unspecified; K21.9 Gastro-esophageal reflux disease without esophagitis; M19.90 Unspecified osteoarthritis, unspecified site; Z87.891 Personal history of nicotine dependence; Z88.5 Allergy status to narcotic agent; Z88.8 Allergy status to other drugs, medicaments and biological substances; Z88.3 Allergy status to other anti-infective agents; Z79.899 Other long term (current) drug therapy; Z79.82 Long term (current) use of aspirin; V89.2XXA Person injured in unspecified motor-vehicle accident, traffic, initial encounter; Z23 Encounter for immunization
CPT/HCPCS: 93005; 86900; 86901; 80053; 83605; 84484; 85025; 85610; 85730; 86850; 80320; 73610; 73630; 73590; 72170; 73110; 71045; 72125; 70450; 71260; 74177; 90715; 99291; 96365; 96375; 96361; 90471; 29515; J2405; J0131; Q9967; 36415

== ENCOUNTER → 2022-01-01 | Outpatient (CLI) | payer MEDICARE ==
--- NOTE | 2022-01-08 17:49 | MM ---
Reason for Exam: Screening (asymptomatic). Last screening mammogram was performed 12 month(s) ago. Patient History: Menarche at age 14. First Full-Term at age 25. Postmenopausal. Other cancer, age 67. Estrogen for 8 years until age 58. Progesterone for 8 years until age 58. Cyst Aspiration on the Right side. Cyst Aspiration on the Left side. Cyst Aspiration on the Left side. Cyst Aspiration on the Left side. Risk Values: Breann 5 year model risk: 1.5%. NCI Lifetime model risk: 2.3%. Prior Study Comparison: 04/19/2012 Bilateral Screening Mammogram, [facility]. 11/19/2014 Bilateral Screening Mammogram, [facility]. 12/31/2020 Bilateral Screening Mammogram, [facility]. Tissue Density: The breast tissue is heterogeneously dense. This may lower the sensitivity of mammography. Findings: Analyzed By CAD. Benign-appearing calcifications. There is no suspicious group of microcalcifications or new suspicious mass in either breast. Overall Assessment: Benign, BI-RAD 2 Management: Screening Mammogram of both breasts in 1 year. A clinical breast exam by your physician is recommended on an annual basis and results should be correlated with mammographic findings. Electronically signed and approved by: Jeramie Rivera DO
== END | disposition home or self-care (01) ==
LOC: RADMAMWWP 06:54
PROVIDERS: ATTEND Family Medicine
DX: Z12.31 Encounter for screening mammogram for malignant neoplasm of breast (principal); Z78.0 Asymptomatic menopausal state; Z85.89 Personal history of malignant neoplasm of other organs and systems; Z98.890 Other specified postprocedural states
CPT/HCPCS: 77063; 77067

== ENCOUNTER → 2022-08-03 | Outpatient (CLI) | payer MEDICARE ==
[2022-08-03 11:22] LABS: African American GFR (CKD) 93.4 (60.0-200.0); Albumin/Globulin Ratio 1.82 (1.60-3.17); Anion Gap 9.5 mmol/L (10.00-18.00); BUN/Creat Ratio 25.95 Ratio (12.00-20.00); Blood Urea Nitrogen 18.4 mg/dL (9.0-27.0); Calcium 9.5 mg/dL (8.7-10.3); Carbon Dioxide 26.2 mmol/L (20.0-27.5); Globulin 2.2 g/dL (1.6-3.3); Non-African American GFR(CKD) 80.6 (60.0-200.0); Potassium 4.6 mmol/L (3.5-5.5); Total Bilirubin 0.3 mg/dL (0.30-1.20); Total Protein 6.2 g/dL (6.2-8.2)
== END | disposition home or self-care (01) ==
LOC: LABWHC1 07:06
PROVIDERS: ATTEND Internal Medicine Interventional Cardiology
DX: I10 Essential (primary) hypertension (principal); I25.10 Atherosclerotic heart disease of native coronary artery without angina pectoris; E78.2 Mixed hyperlipidemia
CPT/HCPCS: 36415; 80053

== ENCOUNTER → 2023-04-26 | Outpatient (CLI) | payer MEDICARE ==
[2023-04-26 11:11] LABS: ALT 16 U/L (8-44); AST 13 U/L (13-35); Chol/HDL Ratio 3.11 Ratio; LDL Cholesterol,Calculated 110.2 mg/dL (0.0-131.0)
== END | disposition home or self-care (01) ==
LOC: LABWHC1 06:56
PROVIDERS: ATTEND Internal Medicine Interventional Cardiology
DX: E78.2 Mixed hyperlipidemia (principal)
CPT/HCPCS: 36415; 80061; 84450; 84460

== ENCOUNTER → 2023-10-19 | Outpatient (CLI) | payer MEDICARE ==
[2023-10-19 10:41] LABS: ALT 15 U/L (8-44); AST 16 U/L (13-35); Albumin 4.2 g/dL (3.8-4.9); Alkaline Phosphatase 57 U/L (41-126); BUN/Creat Ratio 25.88 Ratio (12.00-20.00); Blood Urea Nitrogen 20.7 mg/dL (9.0-27.0); Calcium 9.4 mg/dL (8.7-10.3); Carbon Dioxide 24.5 mmol/L (21.6-31.8); Chloride 106 mmol/L (96-109); Chol/HDL Ratio 3.12 Ratio; Glucose 115 mg/dL (70-110); LDL Cholesterol,Calculated 111.2 mg/dL (0.0-131.0); Potassium 4.1 mmol/L (3.5-5.5); Sodium 141 mmol/L (135-145); Total Bilirubin 0.3 mg/dL (0.3-1.2); Total Protein 6.2 g/dL (6.2-8.2); VLDL Calculation 16.46 mg/dL (5.00-40.00)
== END | disposition home or self-care (01) ==
LOC: LABWHC1 07:01
PROVIDERS: ATTEND Internal Medicine Interventional Cardiology
DX: E78.2 Mixed hyperlipidemia (principal)
CPT/HCPCS: 36415; 80053; 80061

== ENCOUNTER → 2024-02-08 | Outpatient (CLI) | payer MEDICARE ==
[2024-02-08 10:20] VITALS: BP 162/76; PULSE 60; RESP 16; TEMP 98.2
--- NOTE | 2024-02-08 11:18 | P.SLEEP ---
History of Present Illness DATE: 02/08/2024 CONSULTATION/NEW PATIENT EVALUATION HISTORY OF PRESENT ILLNESS/SLEEP-WAKE EVALUATION: 83-year-old lady had been evaluated in the sleep center for obstructive sleep apnea hypopnea syndrome. I saw the patient in 2007. At that time patient was diagnosed with moderate obstructive sleep apnea hypopnea syndrome. She was started on treatment with CPAP and she continued to use CPAP equipment every night for the whole night. I checked CPAP unit CPAP pressure is 9 cm of water, usage is 100% of nights average 7.4 hours per night. Great compliance. Leak is 12 L/min which is normal. Apnea hypopnea index is 2.3 which is normal. CPAP unit is old, motor life expectancy exceeded, noisy. SLEEP SCHEDULE: Usually sleep schedule from 10 PM to 6 AM. FALLING ASLEEP: Sometimes patient has difficulties with falling asleep. DURING SLEEP: No snoring while using CPAP. Patient still wakes up from sleep 3 times with nocturia. No history of hypnogogical hallucinations, sleep paralysis, or cataplexy. DURING THE DAY/WAKE STATE: Sometimes patient feels sleepiness during the day. [place] sleepiness scale is 11. Patient may take nap at 3 PM. PAST MEDICAL HISTORY: Hypertension, hypothyroidism, heart murmur, history of atrial fibrillation. PAST SURGICAL HISTORY: Please see below. MEDICATIONS: Please see below. SOCIAL HISTORY: Please see below. FAMILY HISTORY: Stroke, hypertension, cancer. REVIEW OF SYSTEMS: No snoring on CPAP according to patient, sometimes sleepiness during the day, some awakenings from sleep. No fevers. No double vision. No recent chest pain. No shortness of breath. No abdominal pain. No bleeding episodes. No blood in urine. No seizure episodes. PHYSICAL EXAMINATION: GENERAL: A pleasant patient without any distress. VITAL SIGNS: Please see below, weight 176 pounds, BMI 32.1. HEENT: PERRLA, EOMI. Evaluation of oropharynx showed tongue protrudes midline, low position of soft palate Mallampati 4. NECK: Supple. No JVD. Thyroid is not palpable. 15.5 inches in circumference. LUNGS: Clear to percussion and to auscultation. Good air exchange. No wheezing or rhonchi. HEART: S1, S2 regular. Systolic murmur on the heart mostly on aorta area. ABDOMEN: Soft and nontender. Bowel sounds are present. No organomegaly appreciated. EXTREMITIES: No clubbing or cyanosis. MANAGER FILM: Awake, alert, and oriented x3. Cranial nerves 2 to 7 intact. There is no fasciculation or atrophy noted. No focal deficits observed. ASSESSMENT: 1. Obstructive sleep apnea hypopnea syndrome diagnosed in 2007 in our institution. I reviewed results of sleep studies, it showed moderate obstructive sleep apnea hypopnea syndrome. Patient continued to use her equipment every night for the whole night. Normal respiration reading from CPAP unit. Extremely low position of soft palate Mallampati 4. Obstructive sleep apnea hypopnea syndrome. 2. Mild obesity BMI 32.1. 3. Hypertension. 4. History of atrial fibrillation. 5. Systolic more more on the heart mostly on aorta area. 6 . Hypothyroidism. 7. Hyperlipidemia. 8. Status post bilateral cataract surgery. 9 . History of TIA in 1985 and 2007. 10. Status post right knee replacement. PLAN: 1. Prescription to replace CPAP unit. Unit is old, motor life expectancy exceeded, noisy. 2. Continue to use CPAP equipment every night for the whole night. 3. Preferable position during sleep on the side. 4. No driving if patient feels any sleepiness. Patient is aware of civil and criminal liability for unsafe driving. 5. Sleep hygiene with regular sleep time for at least 7.5-8 hours. 6. Watching weight. 7. Prescription for all necessary CPAP supplies including heated tube, air filters, nasal pillow mask. 8. Follow-up visit in 30 to 90 days after patient will receive new CPAP unit to evaluate compliance with treatment, clinical response on treatment and [place] adjustments. Thank you very much for referring this patient for consultation. Sincerely, Eddie Lei MD, PhD, FAASM. Diplomat of [place] [employer], Sleep Medicine Board by [place] [employer] [place] [employer] Privacy Specialist [facility] [place] cc: Nathaniel Ba MD Past Medical History Past Medical History: Cancer, CVA/TIA, GERD/Reflux, Hyperlipidemia, Hypertension, Osteoarthritis (OA), Sleep Apnea/CPAP/BIPAP Additional Past Medical History / Comment(s): hx heart murmur, stroke 2007-no residual effects, hx. basal cell skin cancer, GALLBLADDER ATTACK, hx shingles History of Any Multi-Drug Resistant Organisms: None Reported Past Surgical History: Appendectomy, Heart Catheterization, Joint Replacement, Tubal Ligation Additional Past Surgical History / Comment(s): left knee replaced, Mohs procedure-skin cancer, COLONOSCOPY Past Anesthesia/Blood Transfusion Reactions: No Reported Reaction Past Psychological History: No Psychological Hx Reported Smoking Status: Former smoker Past Alcohol Use History: Rare Additional Past Alcohol Use History / Comment(s): quit smoking 40 yrs. ago, 1ppd Past Drug Use History: None Reported - Past Family History Mother Family Medical History: Hypertension Father Family Medical History: COPD, Coronary Artery Disease (CAD) Medications and Allergies Home Medications Medication Instructions Recorded Confirmed Type Levothyroxine Sodium [Synthroid] 137 mcg PO DAILY 08/08/15 02/08/24 History amLODIPine [Norvasc] 5 mg PO BID 08/08/15 02/08/24 History Ezetimibe [Zetia] 10 mg PO HS 10/21/15 02/08/24 History cloNIDine HCL 0.05 mg PO HS 01/20/16 02/08/24 History Aspirin [Adult Low Dose Aspirin EC] 81 mg PO HS 03/03/18 01/21/23 History Apixaban [Eliquis] 5 mg PO BID 01/21/23 02/08/24 History [place]-3S/Dha/Epa/Fish Oil [Fish 1 cap PO DAILY 01/21/23 01/21/23 History Oil 1,000 mg Softgel] Vit C/E/Zn/Coppr/Lutein/Zeaxan 1 cap PO BID 01/21/23 02/08/24 History [Preservision Areds 2 Softgel] carvediloL [Coreg] 6.25 mg PO BID 01/21/23 02/08/24 History hydrALAZINE HCL [Apresoline] 75 mg PO TID 01/21/23 02/08/24 History Allergies Allergy/AdvReac Type Severity Reaction Status Date / Time lisinopril Allergy Swelling Verified 01/21/23 13:33 codeine AdvReac Hallucinati Verified 01/21/23 13:33 ons nitrofurantoin AdvReac "makes me Verified 01/21/23 13:33 [From Macrobid] antsy" scopolamine AdvReac Hallucinati Verified 01/21/23 13:33 ons Physical Exam Vitals: Vital Signs Temp Pulse Resp BP Pulse Ox 02/08/24 10:19 98.2 F 60 16 162/76 95 Intake and Output 02/07/24 02/08/24 02/08/24 22:59 06:59 14:59 Other: Weight 79.832 kg Sleep Note - Sleep Data ESS Total: 11 - Sleep Note Sleep Note: Temperature: 98.2 F Pulse Rate: 60 Respiratory Rate: 16 Blood Pressure: 162/76 SpO2: 95 Height: 5 ft 2 in Weight: 79.832 kg BMI: Neck Circumference: 15.5
== END ==
LOC: 3 N SLEEP 10:05
PROVIDERS: ATTEND Internal Medicine
CPT/HCPCS: 99211

== ENCOUNTER → 2024-02-08 | Outpatient (CLI) | payer MEDICARE ==
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
== END | disposition home or self-care (01) ==
LOC: RADXRMAIN 09:18
PROVIDERS: ATTEND Family Medicine
DX: M50.30 Other cervical disc degeneration, unspecified cervical region (principal)
CPT/HCPCS: 72050

== ENCOUNTER → 2024-04-16 | Outpatient (CLI) | payer MEDICARE ==
[2024-04-16 10:44] VITALS: BP 163/71; PULSE 56; RESP 12; TEMP 98.2
--- NOTE | 2024-04-16 11:08 | P.PROGSL ---
Subjective DATE: 04/16/2024 FOLLOW UP VISIT. Patient with obstructive sleep apnea hypopnea syndrome return to sleep center for follow-up visit. Information from previous visit have been reviewed. This is first visit after patient received new CPAP unit. Patient is using PAP equipment every night for the whole night, getting PAP supplies in time. The patient does not have significant problems with the mask, PAP unit and humidification. [place] sleepiness scale is 10, which is borderline. I checked information from PAP unit. PAP unit pressure 9 cm H2O. Usage is 100% for more then 4 hours, average 7.6 hours per night. Leak is 23 l/m, which is in acceptable range. Apnea Hypopnea Index is 2.7, which is normal. MEDICATIONS have been reviewed, please see below. During physical exam: GENERAL: A pleasant patient without any distress. VITAL SIGNS: Please see below, weight is 175 lbs. HEENT: PERRLA, EOMI.low position of soft palate, Mallapati 4 . NECK: Supple. No JVD. LUNGS: Clear to percussion and to auscultation. Good air exchange. No wheezing or rhonchi. HEART: S1, S2 regular. ABDOMEN: Soft and nontender.[] EXTREMITIES: No clubbing or cyanosis. BOND TRADER: Awake, alert, and oriented x3. No focal deficit. Impressions: 1. Obstructive sleep apnea-hypopnea syndrome. Patient demonstrated great compliance with treatment, benefiting from treatment. 2. Hypertension. 3. History of atrial fibrillation. 4. Mild obesity. 5. Systolic murmur mostly on aorta. 6. Hyperlipidemia. 7. Hypothyroidism. 8. History of TIA in 1986 in 2007. 9. Status post bilateral cataract surgery. 10. Status post right knee replacement. Plan: 1. Continue using PAP equipment every night for the whole night. 2. Sleep hygiene with regular time in bed for at least 7.5-8 hours 3. PAP unit should stay lower then position of the head. 4. Advised patient to remove all remaining water from humidifier canister daily and make it dry after each usage. Refill canister with fresh distilled water before each usage. 5. Watching weight. 6. Precautions related to driving. No driving if feel any sleepiness. 7. I will maintain prescription for PAP supplies including mask, tube, filters. 8. Follow up visit in 8 months or earlier if patient has any problems. Thank you very much for allowing me to participate in the management of your patient. Eddie Lei MD, PhD, FAASM. Diplomat of [place] [employer], Sleep Medicine Board by [place] [employer] Test [facility] [place] Objective - Vital Signs Vital Signs: Vital Signs Temp 98.2 F 04/16/24 10:40 Pulse 56 L 04/16/24 10:40 Resp 12 04/16/24 10:40 BP 163/71 04/16/24 10:40 Pulse Ox 96 04/16/24 10:40 FiO2 Intake & Output 04/15/24 04/16/24 04/16/24 18:59 06:59 18:59 Weight 79.379 kg Home Medications: Home Medications Medication Instructions Recorded Confirmed Type Levothyroxine Sodium [Synthroid] 137 mcg PO DAILY 08/08/15 04/16/24 History amLODIPine [Norvasc] 5 mg PO BID 08/08/15 04/16/24 History Ezetimibe [Zetia] 10 mg PO HS 10/21/15 04/16/24 History cloNIDine HCL 0.05 mg PO HS 01/20/16 04/16/24 History Aspirin [Adult Low Dose Aspirin EC] 81 mg PO HS 03/03/18 01/21/23 History Apixaban [Eliquis] 5 mg PO BID 01/21/23 02/08/24 History Vit C/E/Zn/Coppr/Lutein/Zeaxan 1 cap PO BID 01/21/23 04/16/24 History [Preservision Areds 2 Softgel] carvediloL [Coreg] 6.25 mg PO BID 01/21/23 04/16/24 History hydrALAZINE HCL [Apresoline] 75 mg PO TID 01/21/23 04/16/24 History
== END ==
LOC: 3 N SLEEP 10:07
PROVIDERS: ATTEND Internal Medicine
DX: G47.33 Obstructive sleep apnea (adult) (pediatric) (principal); I10 Essential (primary) hypertension; I48.91 Unspecified atrial fibrillation; E03.9 Hypothyroidism, unspecified; E66.9 Obesity, unspecified; E78.5 Hyperlipidemia, unspecified; R01.1 Cardiac murmur, unspecified; Z86.73 Personal history of transient ischemic attack (TIA), and cerebral infarction without residual deficits; Z98.41 Cataract extraction status, right eye; Z98.42 Cataract extraction status, left eye; Z96.651 Presence of right artificial knee joint; Z99.89 Dependence on other enabling machines and devices; Z88.8 Allergy status to other drugs, medicaments and biological substances; Z88.5 Allergy status to narcotic agent; Z88.1 Allergy status to other antibiotic agents; Z79.01 Long term (current) use of anticoagulants; Z79.899 Other long term (current) drug therapy; Z79.890 Hormone replacement therapy; Z87.891 Personal history of nicotine dependence; Z68.32 Body mass index [BMI] 32.0-32.9, adult
CPT/HCPCS: 99212

== ENCOUNTER → 2024-05-01 | Outpatient (CLI) | payer MEDICARE ==
[2024-05-01 15:56] LABS: ALT 15 U/L (8-44); AST 14 U/L (13-35); Albumin 4.1 g/dL (3.8-4.9); Albumin/Globulin Ratio 1.78 Ratio (1.60-3.17); Alkaline Phosphatase 62 U/L (41-126); BUN/Creat Ratio 23.86 Ratio (12.00-20.00); Blood Urea Nitrogen 16.7 mg/dL (9.0-27.0); Calcium 9.4 mg/dL (8.7-10.3); Carbon Dioxide 27.3 mmol/L (21.6-31.8); Chloride 104 mmol/L (96-109); Chol/HDL Ratio 3.34 Ratio; Globulin 2.3 g/dL (1.6-3.3); Glucose 101 mg/dL (70-110); LDL Cholesterol,Calculated 120.1 mg/dL (0.0-131.0); Potassium 4.4 mmol/L (3.5-5.5); Sodium 141 mmol/L (135-145); Total Bilirubin 0.3 mg/dL (0.3-1.2); Total Protein 6.4 g/dL (6.2-8.2)
== END | disposition home or self-care (01) ==
LOC: LABWHC1 07:05
PROVIDERS: ATTEND Internal Medicine Interventional Cardiology
DX: I10 Essential (primary) hypertension (principal); E78.2 Mixed hyperlipidemia
CPT/HCPCS: 36415; 80053; 80061

== ENCOUNTER → 2024-10-19 | Outpatient (CLI) | payer MEDICARE ==
[2024-10-19 10:16] LABS: Basophils # (A) 0.02 X 10*3/uL (0.00-0.10); Basophils % (A) 0.3 %; Eosinophils # (A) 0.11 X 10*3/uL (0.04-0.35); Eosinophils % (A) 1.9 %; HCT 38.6 % (37.2-46.3); HGB 12.1 g/dL (12.0-15.0); Lymphocytes # (A) 1.69 X 10*3/uL (0.90-5.00); MCH 29.2 pg (27.0-32.0); MCHC 31.3 g/dL (32.0-37.0); MCV 93.2 FL (80.0-97.0); Mean Platelet Volume 9.4 FL (9.5-12.2); Monocytes # (A) 0.56 X 10*3/uL (0.20-1.00); Monocytes % (A) 9.6 %; NRBC Per 100 WBC 0 X 10*3/uL (0.00-0.01); Neutrophils # (A) 3.44 X 10*3/uL (1.80-7.70); Platelet Count 316 X 10*3/uL (140-440); RBC 4.14 X 10*6/uL (4.10-5.20); RDW 13.3 % (11.5-14.5); WBC 5.83 X 10*3/uL (4.50-10.00)
[2024-10-19 10:43] LABS: ALT 16 U/L (8-44); AST 16 U/L (13-35); Albumin/Globulin Ratio 1.74 Ratio (1.60-3.17); Alkaline Phosphatase 54 U/L (41-126); BUN/Creat Ratio 24.29 Ratio (12.00-20.00); Calcium 9.4 mg/dL (8.7-10.3); Carbon Dioxide 25.9 mmol/L (21.6-31.8); Chloride 102 mmol/L (96-109); Chol/HDL Ratio 3.41 Ratio; Globulin 2.3 g/dL (1.6-3.3); Glucose 110 mg/dL (70-110); LDL Cholesterol,Calculated 105.7 mg/dL (0.0-131.0); Potassium 4.5 mmol/L (3.5-5.5); Sodium 138 mmol/L (135-145); Total Bilirubin 0.2 mg/dL (0.3-1.2); Total Protein 6.3 g/dL (6.2-8.2); VLDL Calculation 19.38 mg/dL (5.00-40.00)
== END | disposition home or self-care (01) ==
LOC: LABWHC1 06:56
PROVIDERS: ATTEND Family Medicine
DX: Z00.00 Encounter for general adult medical examination without abnormal findings (principal); I10 Essential (primary) hypertension; I48.91 Unspecified atrial fibrillation; E78.2 Mixed hyperlipidemia; E03.9 Hypothyroidism, unspecified; Z99.89 Dependence on other enabling machines and devices
CPT/HCPCS: 36415; 80053; 80061; 84443; 85025